=== PATIENT | female | born 1940 | race Caucasian/White ===

== ENCOUNTER 2022-10-01 19:03 | Inpatient (IN) | payer MEDICARE, SELFPAY ==
[2022-10-01 19:42] VITALS: BP 118/82; PULSE 105; RESP 16; TEMP 36.6; O2SAT 97
[2022-10-01 20:01] LABS: Basophils % 0.7 %; Eosinophils # 0.1 10^3/uL (0.0-0.8); Eosinophils % 1.2 %; Hematocrit 31.5 % (37.0-47.0); Hemoglobin 10.2 g/dL (11.5-15.3); Lymphocytes # 0.7 10^3/uL (0.8-4.8); Lymphocytes % 12.5 %; Mean Corpuscular HGB Conc 32.4 g/dL (30.0-36.0); Mean Corpuscular Hemoglobin 30.4 pg (28.0-34.0); Monocytes # 0.5 10^3/uL (0.2-0.9); Monocytes % 7.8 %; Neutrophils # 4.54 10^3/uL (1.8-7.7); Neutrophils % 77.5 %; Nucleated Red Blood Cells % 0 %; Platelet Count 380 10^3/cmm (130-400); Red Blood Count 3.35 10^6/uL (4.1-5.3); Red Cell Distribution Width 12.9 % (12.1-15.1); White Blood Count 5.9 10^3/uL (4.0-10.0)
[2022-10-01 20:24] LABS: Alanine Aminotransferase 26 U/L (0-33); Albumin Level 3.5 g/dL (3.5-5.2); Alkaline Phosphatase 79 U/L (35-105); Anion Gap 17.1 (5-19); Aspartate Amino Transferase 31 U/L (0-32); Blood Urea Nitrogen 23 mg/dL (8-23); Calcium 8.5 mg/dL (8.5-10.5); Carbon Dioxide 23 mmol/L (22-29); Chloride 103 mmol/L (98-107); Globulin 2.9 g/dL (1.3-4.6); Glucose 131 mg/dL (65-115); Lipase 32 U/L (13-60); Osmolality Calculated 293 mOsm/kg (285-295); Potassium 4.1 mmol/L (3.5-5.1); Sodium 139 mmol/L (136-145); Total Bilirubin 0.2 mg/dL (0.15-1.2); Total Protein 6.4 g/dL (6.6-8.7)
--- NOTE | 2022-10-01 21:45 | CTR_ITS ---
PROCEDURE INFORMATION: Exam: CT Abdomen And Pelvis With Contrast Exam date and time: 10/01/2022 10:47 PM Age: 82 years old Clinical indication: Nausea and vomiting; Prior surgery; Surgery date: 6+ months; Surgery type: Appy; Additional info: Abdominal pain, gi bleeding TECHNIQUE: Imaging protocol: Computed tomography of the abdomen and pelvis with contrast. Radiation optimization: All CT scans at this facility use at least one of these dose optimization techniques: automated exposure control; mA and/or kV adjustment per patient size (includes targeted exams where dose is matched to clinical indication); or iterative reconstruction. Contrast material: OMNI 350; Contrast volume: 100 ml; Contrast route: INTRAVENOUS (IV); REPORTING DATA: Count of CT and Cardiac NM exams in prior 12 months: This patient has received 0 known CTs and 0 known cardiac nuclear medicine studies in the 12 months prior to the current study. COMPARISON: CR XR chest 2V* [id number] 11/15/2017 8:04 PM RADIATION DOSE METRICS: Total DLP (mGy-cm): 426.55 FINDINGS: Lungs: Emphysematous changes suspected. Bibasilar atelectasis. Liver: Several low-density hepatic lesions, 1 of which in the left hepatic lobe measures 12.6 mm and appears somewhat complicated. Gallbladder and bile ducts: Normal. No calcified stones. No ductal dilation. Pancreas: Normal. No ductal dilation. Spleen: Normal. No splenomegaly. Adrenal glands: Normal. No mass. Kidneys and ureters: Bilateral renal cysts, negative for follow-up advised. Stomach and bowel: Minimal diverticulosis without diverticulitis. Mild gastric wall thickening may reflect a gastritis in the appropriate clinical setting. Appendix: No evidence of appendicitis. Intraperitoneal space: Unremarkable. No free air. No significant fluid collection. Vasculature: Unremarkable. No abdominal aortic aneurysm. Lymph nodes: Several enlarged upper abdominal lymph nodes measuring up to 12.2 mm series 4, image 19, nonspecific. Urinary bladder: Unremarkable as visualized. Reproductive: Unremarkable as visualized. Bones/joints: Unremarkable. No acute fracture. Soft tissues: Unremarkable. CT/CT abdomen pelvis w con* [id number] IMPRESSION: 1. Negative for contrast extravasation seen to indicate a source of gastrointestinal bleeding. 2. Emphysematous changes suspected. 3. Bibasilar atelectasis. 4. Several low-density hepatic lesions, 1 of which in the left hepatic lobe measures 12.6 mm and appears somewhat complicated. Further evaluation with non-emergent liver MRI is recommended. (Reference: Ran) 5. Bilateral renal cysts, negative for follow-up advised. 6. Minimal diverticulosis without diverticulitis. 7. Mild gastric wall thickening may reflect a gastritis in the appropriate clinical setting. 8. Several enlarged upper abdominal lymph nodes measuring up to 12.2 mm series 4, image 19, nonspecific. COMMENTS: Consistent with the [employer]'s Incidental Findings Committee white paper (J Am Latoya Radiol 2018): Any incidental renal lesion less than 1 cm or classified as too small to characterize, or any incidental cystic renal lesion characterized as simple-appearing, is likely benign. No follow-up imaging is recommended for these lesions per consensus recommendations based on imaging criteria. REFERENCES: Ran NORRIS, et al. Management of Incidental Liver Lesions on CT: A White Paper of the ACR Incidental Findings Committee. J Am Latoya Radiol. 2017;14(11):5674-0324.
--- NOTE | 2022-10-01 22:26 | ED_ITS ---
HPI - GI Bleed General: Chief complaint: GI Bleed Stated complaint: weakness, vomiting blood, black stools Time Seen by Provider: 10/01/22 21:36 Source: patient and family History of Present Illness: 82-year-old female who notes that when she returned home from [place] today, she began to feel ill. She was nauseated. She felt a bit unsteady on her feet. She had an episode of vomiting, that she notes was blood. It was a small amount. She then had a black loose stool. She has not felt well, and has been generally weak since that time. No further ep isodes. No fever. No overt belly pain. She is not on any anticoagulants. She does take antihypertensive medication and eyedrops. MD complaint: gross hematemesis and melena Onset (ago): hour(s) Pain Consistency: other Relieving factors: other Exacerbating factors: other Associated symptoms: Reports chills, malaise, nausea and vomiting; Denies abdominal pain, easy bruising, epistaxis, fever(s), headache(s), other bleeding or syncope Treatments Prior to Arrival: none Review of Systems Const: Reports: chills and malaise; Denies: fever(s) ENMT: Denies: throat pain or epistaxis Card: Denies: chest pain, palpitations or syncope Resp: Denies: dyspnea, productive cough or non-productive cough GI: Reports: nausea and vomiting; Denies: abdominal pain : Denies: flank pain or difficulty voiding Neuro: Denies: headache(s) Gerard/Lymph: Denies: easy bruising Physical Exam Const: GENERAL APPEARANCE: cooperative, ill appearing (Mildly) and frail appearing (Mildly) HENMT: COMMON NORMALS: normocephalic, atraumatic and Normal external nose present HEAD & SCALP: normocephalic and atraumatic FACE & SINUS: normal facial exam and face symmetric NOSE: Normal external nose present Eye: COMMON NORMALS: Equal, round and reactive pupils present and EOMs intact bilaterally PUPIL: Yes Equal, round and reactive pupils present Neck/C-Spine: GENERAL: Yes trachea midline Chest: CHEST: Yes Symmetrical chest wall rise Resp: COMMON NORMALS: normal respiratory effort, No retractions, No use of accessory muscles and clear to auscultation bilaterally AUSCULTATION: clear to auscultation bilaterally Cardio: COMMON NORMALS: regular rate and regular rhythm RATE: regular rate RHYTHM: regular rhythm GI: COMMON NORMALS: Soft to palpation INSPECTION: Yes abdominal distension PALPATION: Yes Soft to palpation and Yes Tenderness to palpation present (GI) (Mild diffuse) Extremity: COMMON NORMALS: no pedal edema Neuro: [place] COMA SCALE: document GCS findings [place] coma scale eye opening: Spontaneous [place] coma scale verbal response: Orientated [place] coma scale motor response: Obey commands [place] coma scale total score: 15 SENSORY EXAM: Yes extremities (intact) Psych: COMMON NORMALS: speech normal SPEECH: Yes normal speech Skin: COMMON NORMALS: no rashes or lesions noted GENERAL SKIN EXAM: no rash es or lesions noted Course Vital Signs: Vital signs: Vital Signs Temperature 97.8 F 10/01/22 19:42 Pulse Rate 105 H 10/01/22 19:42 Respiratory Rate 16 10/01/22 19:42 Blood Pressure 118/82 10/01/22 19:42 Pulse Oximetry 97 10/01/22 19:42 Oxygen Delivery Me thod 10/01/22 19:42 MDM - GI Bleed Medical Decision Making 82-year-old female with evidence of upper GI bleeding. She has not demonstrated bleeding since here. Her hemoglobin is 10.2. 5 hours later, it is 8.4. Other laboratories not remarkable. By CT, she has a gastritis, presumed source of bleeding. No other acute findings. Spoke with our hospitalist. Willing to admit, with surgery consult in the morning in case further blood loss, an EGD needed. She will go to the floor. Repeat hemoglobin later this morning. Lab Data 10/01/22 19:53 10/01/22 19:53 Radiology Impressions Abdomen/Pelvis CT 10/01/22 21:45 IMPRESSION: 1. Negative for contrast extravasation seen to indicate a source of gastrointestinal bleeding. 2. Emphysematous changes suspected. 3. Bibasilar atelectasis. 4. Several low-density hepatic lesions, 1 of which in the left hepatic lobe measures 12.6 mm and appears somewhat complicated. Further evaluation with non-emergent liver MRI is recommended. (Reference: Ran) 5. Bilateral renal cysts, negative for follow-up advised. 6. Minimal diverticulosis without diverticulitis. 7. Mild gastric wall thickening may reflect a gastritis in the appropriate clinical setting. 8. Several enlarged upper abdominal lymph nodes measuring up to 12.2 mm series 4, image 19, nonspecific. COMMENTS: Consistent with the [employer]'s Incidental Findings Committee white paper (J Am Latoya Radiol 2018): Any incidental renal lesion less than 1 cm or classified as too small to characterize, or any incidental cystic renal lesion characterized as simple-appearing, is likely benign. No follow-up imaging is recommended for these lesions per consensus recommendations based on imaging criteria. REFERENCES: Ran NORRIS, et al. Management of Incidental Liver Lesions on CT: A White Paper of the ACR Incidental Findings Committee. J Am Latoya Radiol. 2017;14(11):5643-9276. Laboratory Results WBC 5.9 10^3/uL (4.0-10.0) 10/01/22 19:53 RBC 3.35 10^6/uL (4.1-5.3) L 10/01/22 19:53 Hgb 8.4 g/dL (11.5-15.3) L 10/02/22 00:13 Hct 31.5 % (37.0-47.0) L 10/01/22 19:53 MCV 94.0 fl (81-99) 10/01/22 19:53 MCH 30.4 pg (28.0-34.0) 10/01/22 19:53 MCHC 32.4 g/dL (30.0-36.0) 10/01/22 19:53 RDW 12.9 % (12.1-15.1) 10/01/22 19:53 Plt Count 380 10^3/cmm (130-400) 10/01/22 19:53 MPV 10.0 fL (7.4-10.4) 10/01/22 19:53 Neut % (Auto) 77.5 % 10/01/22 19:53 Lymph % (Auto) 12.5 % 10/01/22 19:53 [place] % (Auto) 7.8 % 10/01/22 19:53 Eos % (Auto) 1.2 % 10/01/22 19:53 Baso % (Auto) 0.7 % 10/01/22 19:53 Neut # (Auto) 4.54 10^3/uL (1.8-7.7) 10/01/22 19:53 Lymph # (Auto) 0.7 10^3/uL (0.8-4.8) L 10/01/22 19:53 [place] # (Auto) 0.5 10^3/uL (0.2-0.9) 10/01/22 19:53 Eos # (Auto) 0.1 10^3/uL (0.0-0.8) 10/01/22 19:53 Baso # (Auto) 0.0 10^3/uL (0.0-0.1) 10/01/22 19:53 Nucleated RBC % (auto) 0 % 10/01/22 19:53 Nucleated RBCs # 0.0 /100WBC 10/01/22 19:53 Sodium 139 mmol/L (136-145) 10/01/22 19:53 Potassium 4.1 mmol/L (3.5-5.1) 10/01/22 19:53 Chloride 103 mmol/L (98-107) 10/01/22 19:53 Carbon Dioxide 23 mmol/L (22-29) 10/01/22 19:53 Anion Gap 17.1 (5-19) 10/01/22 19:53 BUN 23 mg/dL (8-23) 10/01/22 19:53 Creatinine 0.6 mg/dL (0.5-0.9) 10/01/22 19:53 GFR Calculation Not Reportable 10/01/22 19:53 Glucose 131 mg/dL (65-115) H 10/01/22 19:53 Calculated Osmolality 293 mOsm/kg (285-295) 10/01/22 19:53 Calcium 8.5 mg/dL (8.5-10.5) 10/01/22 19:53 Total Bilirubin 0.2 mg/dL (0.15-1.2) 10/01/22 19:53 AST 31 U/L (0-32) 10/01/22 19:53 ALT 26 U/L (0-33) 10/01/22 19:53 Alkaline Phosphatase 79 U/L (35-105) 10/01/22 19:53 Total Protein 6.4 g/dL (6.6-8.7) L 10/01/22 19:53 Albumin 3.5 g/dL (3.5-5.2) 10/01/22 19:53 Globulin 2.9 g/dL (1.3-4.6) 10/01/22 19:53 Lipase 32 U/L (13-60) 10/01/22 19:53 Discharge Plan Discharge Patient Disposition: Admitted As Inpatient Clinical Impression: Gastritis, Upper gastrointestinal hemorrhage, Anemia Condition: Fair Coding Level of Care Code ED [employer] Coach for Brenna Guadalupe
[2022-10-01] MEDS: sodium chloride 0.9% 1,000 ML 999 ML IV (22:35)
[2022-10-01] MEDS: ondansetron 2 mg/ML SDV 2 mL 4 MG IVP (22:35)
[2022-10-01] MEDS: iohexol 350 mg/mL 500 mL Btl (per mL) IV (22:52)
[2022-10-01] MEDS: pantoprazole 40 mg SDV 80 MG IVP (23:55)
[2022-10-02] VITALS (28 sets, daily range): BP systolic 119–185; BP diastolic 61–120; PULSE 76–103; RESP 16–30; TEMP -12.7–37; O2SAT 75–100
[2022-10-02 00:21] LABS: Hemoglobin 8.4 g/dL (11.5-15.3)
[2022-10-02 03:49] LABS: Urine Color Yellow (Yellow)
[2022-10-02 03:50] LABS: Bilirubin Urine Neg (Negative); Blood Urine 2+ (Negative); Glucose Urine UA Norm (Normal); Ketones Urine Negative (Negative); Nitrate Urine Positive (Negative); Protein Urine Trace (Negative); Specific Gravity, Urine 1.005 (1.005-1.030); Urine Appearance Cloudy (CLEAR); pH Urine 5 (5-7)
[2022-10-02 03:51] LABS: Add Urine Microscopic? YES; Leukocyte Esterase Urine 2+ (Negative); Urobilinogen Urine Neg (Negative)
[2022-10-02 03:52] LABS: Add Urine Culture? Yes; Bacteria Urine 1+ /hpf; Mucus Urine 1+ /hpf; Squamous Epithelial Cell Urine 0-4 /hpf (0-5); WBC Urine TOO NUMEROUS TO CNT /hpf (0-5)
[2022-10-02] MEDS: pantoprazole 40 MG in sodium chloride 0.9% (plus) 100 ML 20 MG IV ×3 (03:57→14:49)
[2022-10-02] MEDS: lanolin oint 7 gm 1 APPLIC TOPICAL (04:12)
[2022-10-02] MEDS: sodium chloride 0.9% 1,000 ML 75 ML IV (07:11)
--- NOTE | 2022-10-02 07:14 | PM.HP ---
Providers/Chief Complaint Admitting Physician: Dulce Maria Dubose MD Chief Complaint: weakness, vomiting blood, black stools History of Present Illness Griselda Dillard is a 82 year old female presenting to the emergency room with chief complaints of hematemesis and melena. Patient reports being in her usual state of health until last afternoon when she started to feel nauseated. She had 1 episode of vomiting which contained blood and afterwards had a loose bloody bowel movement. She notes that the stool contained black to brown-colored material possibly blood. Her hemoglobin dropped from 10-8.[address] in the emergency room. CT of the abdomen and pelvis did not reveal any actively bleeding vessel. Diverticulosis was noted. She denies any past history of GI bleeding. Denies any recent fever chills abdominal pain. Review of Systems General: Reports: 10 or more systems reviewed and unremarkable except in HPI and below Const: Denies: fever(s), chills or body aches Eyes: Denies: change in vision, blurry vision or photophobia ENMT: Reports: hoarseness; Denies: throat pain, enlarged tonsils, odynophagia or nasal congestion Card: Denies: chest pain, palpitations, irregular heart rhythm, edema, swelling of feet/ankles, lightheadedness, pre-syncope, dyspnea on exertion or orthopnea Resp: Denies: dyspnea, productive cough, non-productive cough, wheezing, stridor, pain on inspiration, change in phlegm color, hemoptysis or chest congestion GI: Denies: abdominal pain, nausea, vomiting, hematemesis, coffee ground emesis, dysphagia, heartburn, diarrhea, constipation, GI cramping, change in stool character, hematochezia or melena : Denies: flank pain, difficulty voiding, dysuria, urinary frequency, urinary urgency, urinary hesitancy or hematuria Musc: Denies: neck pain, back pain, extremity pain, joint swelling, joint warmth or deformity Neuro: Denies: headache(s), numbness in extremities, weakness in extremities, sensory changes, difficulty walking, frequent falls, dizziness, vertigo, behavioral changes, Slurred speech present or seizure-like activity Psych: Denies: anxiety, depression, suicidal ideation or homicidal ideation Endo: Denies: polyuria, polydipsia, tired all the time, cold intolerance or hot flashes Gerard/Lymph: Denies: easy bruising or easy bleeding Medications/Allergies Allergies Allergy/AdvReac Type Severity Reaction Status Date / Time No Known Allergies Allergy Verified 10/01/22 19:47 Vitals/I&O/Wt Last Vital Signs Temp 98.1 F 10/02/22 04:00 Pulse 76 10/02/22 04:00 Resp 16 10/02/22 04:00 BP 119/74 10/02/22 04:00 Pulse Ox 99 10/02/22 04:00 O2 Del Method 10/02/22 05:11 10/01/22 10/02/22 10/02/22 22:59 06:59 14:59 Intake Total 1000 / 1000 Output Total 250 / 250 Balance 750 / 750 Weight last 48 hrs Weight 65.771 kg Physical Exam Narrative: General: No acute distress, AO x3 HEENT: PERRLA, pupils bilaterally equal and reactive, pallors not present Chest: Normal vesicular breath sounds, no added sounds, equal good air entry bilaterally CVS: S1-S2 regular, no murmurs, no tachycardia, no gallops, no rubs Abdomen: Soft, nontender, no organomegaly, bowel sounds present Neuro: No focal deficits, no facial deformity, AO x3, power 5/5 in all limbs Data 10/02/22 00:13 10/01/22 19:53 Other Labs: Radiology Impressions Abdomen/Pelvis CT 10/01/22 21:45 IMPRESSION: 1. Negative for contrast extravasation seen to indicate a source of gastrointestinal bleeding. 2. Emphysematous changes suspected. 3. Bibasilar atelectasis. 4. Several low-density hepatic lesions, 1 of which in the left hepatic lobe measures 12.6 mm and appears somewhat complicated. Further evaluation with non-emergent liver MRI is recommended. (Reference: Ran) 5. Bilateral renal cysts, negative for follow-up advised. 6. Minimal diverticulosis without diverticulitis. 7. Mild gastric wall thickening may reflect a gastritis in the appropriate clinical setting. 8. Several enlarged upper abdominal lymph nodes measuring up to 12.2 mm series 4, image 19, nonspecific. COMMENTS: Consistent with the [employer]'s Incidental Findings Committee white paper (J Am Latoya Radiol 2018): Any incidental renal lesion less than 1 cm or classified as too small to characterize, or any incidental cystic renal lesion characterized as simple-appearing, is likely benign. No follow-up imaging is recommended for these lesions per consensus recommendations based on imaging criteria. REFERENCES: Ran NORRIS, et al. Management of Incidental Liver Lesions on CT: A White Paper of the ACR Incidental Findings Committee. J Am Latoya Radiol. 2017;14(11):0156-9595. Laboratory Results WBC 5.9 10^3/uL (4.0-10.0) 10/01/22 19:53 RBC 3.35 10^6/uL (4.1-5.3) L 10/01/22 19:53 Hgb 8.4 g/dL (11.5-15.3) L 10/02/22 00:13 Hct 31.5 % (37.0-47.0) L 10/01/22 19:53 MCV 94.0 fl (81-99) 10/01/22 19:53 MCH 30.4 pg (28.0-34.0) 10/01/22 19:53 MCHC 32.4 g/dL (30.0-36.0) 10/01/22 19:53 RDW 12.9 % (12.1-15.1) 10/01/22 19:53 Plt Count 380 10^3/cmm (130-400) 10/01/22 19:53 MPV 10.0 fL (7.4-10.4) 10/01/22 19:53 Neut % (Auto) 77.5 % 10/01/22 19:53 Lymph % (Auto) 12.5 % 10/01/22 19:53 [place] % (Auto) 7.8 % 10/01/22 19:53 Eos % (Auto) 1.2 % 10/01/22 19:53 Baso % (Auto) 0.7 % 10/01/22 19:53 Neut # (Auto) 4.54 10^3/uL (1.8-7.7) 10/01/22 19:53 Lymph # (Auto) 0.7 10^3/uL (0.8-4.8) L 10/01/22 19:53 [place] # (Auto) 0.5 10^3/uL (0.2-0.9) 10/01/22 19:53 Eos # (Auto) 0.1 10^3/uL (0.0-0.8) 10/01/22 19:53 Baso # (Auto) 0.0 10^3/uL (0.0-0.1) 10/01/22 19:53 Nucleated RBC % (auto) 0 % 10/01/22 19:53 Nucleated RBCs # 0.0 /100WBC 10/01/22 19:53 Sodium 139 mmol/L (136-145) 10/01/22 19:53 Potassium 4.1 mmol/L (3.5-5.1) 10/01/22 19:53 Chloride 103 mmol/L (98-107) 10/01/22 19:53 Carbon Dioxide 23 mmol/L (22-29) 10/01/22 19:53 Anion Gap 17.1 (5-19) 10/01/22 19:53 BUN 23 mg/dL (8-23) 10/01/22 19:53 Creatinine 0.6 mg/dL (0.5-0.9) 10/01/22 19:53 GFR Calculation Not Reportable 10/01/22 19:53 Glucose 131 mg/dL (65-115) H 10/01/22 19:53 Calculated Osmolality 293 mOsm/kg (285-295) 10/01/22 19:53 Calcium 8.5 mg/dL (8.5-10.5) 10/01/22 19:53 Total Bilirubin 0.2 mg/dL (0.15-1.2) 10/01/22 19:53 AST 31 U/L (0-32) 10/01/22 19:53 ALT 26 U/L (0-33) 10/01/22 19:53 Alkaline Phosphatase 79 U/L (35-105) 10/01/22 19:53 Total Protein 6.4 g/dL (6.6-8.7) L 10/01/22 19:53 Albumin 3.5 g/dL (3.5-5.2) 10/01/22 19:53 Globulin 2.9 g/dL (1.3-4.6) 10/01/22 19:53 Lipase 32 U/L (13-60) 10/01/22 19:53 Urine Color Yellow (Yellow) 10/02/22 02:55 Urine Appearance Cloudy (CLEAR) A 10/02/22 02:55 Urine pH 5 (5-7) 10/02/22 02:55 Ur Specific [place] 1.005 (1.005-1.030) 10/02/22 02:55 Urine Protein Trace (Negative) 10/02/22 02:55 Urine Glucose (UA) Norm (Normal) 10/02/22 02:55 Urine Ketones Negative (Negative) 10/02/22 02:55 Urine Blood 2+ (Negative) H 10/02/22 02:55 Urine Nitrate Positive (Negative) H 10/02/22 02:55 Urine Bilirubin Neg (Negative) 10/02/22 02:55 Urine Urobilinogen Neg mg/dL (Negative) 10/02/22 02:55 Ur Leukocyte Esterase 2+ (Negative) H 10/02/22 02:55 Urine RBC 5-10 /hpf (0-2) H 10/02/22 02:55 Urine WBC Too numerous to cnt /hpf (0-5) H 10/02/22 02:55 Ur Squamous Epith Cells 0-4 /hpf (0-5) H 10/02/22 02:55 Amorphous Sediment Not Reportable 10/02/22 02:55 Urine Bacteria 1+ /hpf (NONE) H 10/02/22 02:55 Urine Mucus 1+ /hpf 10/02/22 02:55 A&P Assessment and plan (1) Upper gastrointestinal hemorrhage: (2) Anemia: Plan Patient presenting to the emergency room with chief complaints of 1 episode of hematemesis and melena. States feeling nauseous and unwell prior to the events. CT of the abdomen and pelvis without any contrast extravasation. Noted diverticulosis without signs of diverticular lightest. Mild gastric wall thickening which may be reflective of gastritis. Several enlarged upper abdominal lymph nodes. Hemoglobin has dropped from 10-8.4 while being monitored here. Started on Protonix 80 mg IV stat followed by 8 mg/h IV infusion. Due to concern for possible gastritis versus gastric malignancy given enlarged lymph nodes, general surgery has been consulted to assess for endoscopy evaluation. Continue to trend H&H every 8 hours Currently hemodynamically stable, start normal saline at 75 cc an hour Keep n.p.o. Attestations Medical Necessity Statement*: Upper GI bleeding, anemia, needs close hemoglobin monitoring general surgery assessment for possible endoscopy Coding Level of Care Code Acute Code for Chg Fwd Moderate MDM includes number and complexity of problems actively addressed during encounter, amount and/or complexity of data reviewed/ordered and described risk of complication, morbidity or mortality of management as documented Diagnoses Upper gastrointestinal hemorrhage K92.2 Anemia D64.9
--- NOTE | 2022-10-02 08:26 | PC.PHAR ---
pt filled lisinopril/hctz on 09/19/22 90ds pt sts she is not taking because it drops her bp to low
--- NOTE | 2022-10-02 09:01 | P.CONIM_ITS ---
Providers/Reason For Consult Consulting Physician/Specialty*: Dr. Buck Pino, DO/General surgery Reason for Consult*: Upper GI bleed Attending Physician: Dulce Maria Dubose MD History of Present Illness History of Present Illness Griselda Dillard is a 82 year old female who presented to the hospital yesterday with a 1 day history of hematemesis and melena. She denies any abdominal pain. Denies any history of heartburn. She has never had these symptoms before. Her hemoglobin dropped from 10.2-8.4 in the emergency room. General surgery was consulted for possible EGD. Review of Systems General: Reports: 10 or more systems reviewed and unremarkable except in HPI and below Medications/Allergies Home Medications Medication Instructions Recorded Confirmed Last Taken Type calcium carbonate 600 mg calcium 600 mg PO DAILY 10/02/22 10/02/22 Unknown History (1,500 mg) tablet (Calcium) cholecalciferol (vitamin D3) 25 25 mcg PO DAILY 10/02/22 10/02/22 Unknown History mcg (1,000 unit) capsule (Vitamin D3) latanoprost 0.005 % eye drops 1 drp ophthalmic (eye) BEDTIME 10/02/22 10/02/22 Unknown History lovastatin 40 mg tablet 40 mg PO QPM 10/02/22 10/02/22 Unknown History wycnwfcj-jis-fyaov ac 400 1 tab PO DAILY 10/02/22 10/02/22 Unknown History mcg-calcium carb 500 mg-vit K1 20 mcg tablet (Women's 50 Plus Daily Formula) timolol maleate 0.5 % eye drops 1 drp ophthalmic (eye) BID 10/02/22 10/02/22 Unknown History vitamin B12 2,500 mcg-folic acid 1 tab PO DAILY 10/02/22 10/02/22 Unknown History 400 mcg disintegrating tablet Allergies Allergy/AdvReac Type Severity Reaction Status Date / Time No Known Allergies Allergy Verified 10/02/22 08:23 Current Medications Generic Name Dose Route Start Last Admin Trade Name Freq PRN Reason Stop Dose Admin Pantoprazole Sodium 40 mg/ 100 mls @ 20 mls/hr 10/02/22 02:51 10/02/22 03:57 Sodium Chloride IV 8 mg/hr .Q5H EFRAIN 20 mls/hr Administration 8 MG/HR Sodium Chloride 1,000 mls @ 75 mls/hr 10/02/22 06:30 10/02/22 07:11 Sodium Chloride 0.9% IV 75 mls/hr .[id number] EFRAIN Administration Lanolin 1 applic 10/02/22 03:59 10/02/22 04:12 Lanolin Oint 7 Gm TOPICAL 1 applic PRN PRN Administration DRYNESS PFSH Acute PFSH: Surgical History History of appendectomy Vitals/I&O/Wt Last Vital Signs Temp 98.2 F 10/02/22 07:44 Pulse 81 10/02/22 07:44 Resp 16 10/02/22 07:44 BP 128/79 10/02/22 07:44 Pulse Ox 96 10/02/22 07:44 O2 Del Method 10/02/22 07:44 10/01/22 10/02/22 10/02/22 22:59 06:59 14:59 Intake Total 1000 / 1000 Output Total 250 / 250 400 / 400 Balance 750 / 750 -400 / -400 Weight last 48 hrs Weight 145 lb Physical Exam Narrative: General : Patient is well developed , no acute distress, oriented x3 Head : Normal cephalic, a-traumatic. Ears : Pinnae and external canal are normal. Hearing is normal. Eyes : PERRLA, Sclera and injection are normal. No conjunctival discharge. Nose : Mucous membranes are without erythema. Throat : buccal mucosa is normal, gums are without significant recession or hypertrophy. Lungs : Equal chest rise bilaterally, no use of accessory muscles, trachea is midline. Cor : Rate and rhythm are normal. Abdomen : Soft, ND, NT, no g/r/m Extremities : No edema, no cyanosis or clubbing, dorsalis pedis pulses are prese nt bilaterally, non-tender to palpation of calves. Upper extremities are normal bilaterally. Back : non-tender to palpation, no CVA tenderness. Neuro : CN II - XII intact, Upper and lower extremities have equal and full strength Data 10/02/22 00:13 10/01/22 19:53 A&P Assessment and plan (1) Upper gastrointestinal hemorrhage: (2) Anemia: Plan Protonix every 12 Sucralfate twice daily EGD The risks and benefits of the procedure, including bleeding, infection, intestinal perforation requiring surgery, missed lesion were explained to the patient. The patient is understanding of the risks and wishes to proceed. Coding Level of Care Code Acute Code for Chg Fwd Diagnoses Upper gastrointestinal hemorrhage K92.2 Anemia D64.9
[2022-10-02] MEDS: sodium chloride 0.9% 1,000 ML 30 ML IV (09:05)
--- NOTE | 2022-10-02 09:08 | P.ANESASSM_ITS ---
Pre-Anesthetic Assessment Height/Weight: Weight 65.771 kg Temp Pulse Resp BP Pulse Ox O2 Del Method 98.2 F 81 16 128/79 96 10/02/22 07:44 10/02/22 07:44 10/02/22 07:44 10/02/22 07:44 10/02/22 07:44 10/02/22 07:44 Preop Diagnosis: GI bleed Operation Date: 10/02/22 09:00 Proposed Procedures p EGD(Not Applicable) - Buck Pino DO Familial anesthetic complications: none Was Beta Jocelynn taken within 24 hours: N/A Was Clonidine taken within 24 hours: N/A Last Intake: 12:00 Social No alcohol and No tobacco Exam alert, oriented x 3, clear to auscultation bilaterally and regular rate & rhythm Airway Submandibular: within normal limits Cervical ROM: within normal limits Mallampati: Class I Dentition: false Pulmonary None reported CV/HEM None reported None reported Hepatic None reported GI Gastroesophageal Reflux Disease Metabolic None reported Musc/skel None reported Neuropsych Cerebrovascular Accident (right side weakness with diffuculty in speech) and Transient Ischemic Attack Anesthetic Plan ASA status: 3 Anesthesia: MAC Medications/Allergies Home Medications Medication Instructions Recorded Confirmed Last Taken Type calcium carbonate 600 mg calcium 600 mg PO DAILY 10/02/22 10/02/22 Unknown History (1,500 mg) tablet (Calcium) cholecalciferol (vitamin D3) 25 25 mcg PO DAILY 10/02/22 10/02/22 Unknown History mcg (1,000 unit) capsule (Vitamin D3) latanoprost 0.005 % eye drops 1 drp ophthalmic (eye) BEDTIME 10/02/22 10/02/22 Unknown History lovastatin 40 mg tablet 40 mg PO QPM 10/02/22 10/02/22 Unknown History radxopei-syt-amyms ac 400 1 tab PO DAILY 10/02/22 10/02/22 Unknown History mcg-calcium carb 500 mg-vit K1 20 mcg tablet (Women's 50 Plus Daily Formula) timolol maleate 0.5 % eye drops 1 drp ophthalmic (eye) BID 10/02/22 10/02/22 Unknown History vitamin B12 2,500 mcg-folic acid 1 tab PO DAILY 10/02/22 10/02/22 Unknown History 400 mcg disintegrating tablet Allergies Allergy/AdvReac Type Severity Reaction Status Date / Time No Known Allergies Allergy Verified 10/02/22 08:23 Current Medications Generic Name Dose Route Start Last Admin Trade Name Freq PRN Reason Stop Dose Admin Pantoprazole Sodium 40 mg/ 100 mls @ 20 mls/hr 10/02/22 02:51 10/02/22 03:57 Sodium Chloride IV 8 mg/hr .Q5H EFRAIN 20 mls/hr Administration 8 MG/HR Sodium Chloride 1,000 mls @ 75 mls/hr 10/02/22 06:30 10/02/22 07:11 Sodium Chloride 0.9% IV 75 mls/hr .[id number] EFRAIN Administration Lanolin 1 applic 10/02/22 03:59 10/02/22 04:12 Lanolin Oint 7 Gm TOPICAL 1 applic PRN PRN Administration DRYNESS PFSH Anesthesia Surgical History History of appendectomy Data Anesthesia 10/02/22 00:13 10/01/22 19:53 Short CBC 10/01/22 10/02/22 Range/Units 19:53 00:13 WBC 5.9 (4.0-10.0) 10^3/uL Hgb 10.2 L 8.4 L (11.5-15.3) g/dL Hct 31.5 L (37.0-47.0) % MCV 94.0 (81-99) fl Plt Count 380 (130-400) 10^3/cmm Neut % (Auto) 77.5 % Neut # (Auto) 4.54 (1.8-7.7) 10^3/uL BMP 10/01/22 19:53 Sodium 139 Potassium 4.1 Chloride 103 Carbon Dioxide 23 BUN 23 Creatinine 0.6 Glucose 131 H Calcium 8.5 Liver Function 10/01/22 Range/Units 19:53 Total Bilirubin 0.2 (0.15-1.2) mg/dL AST 31 (0-32) U/L ALT 26 (0-33) U/L Alkaline Phosphatase 79 (35-105) U/L Albumin 3.5 (3.5-5.2) g/dL Urine 10/02/22 Range/Units 02:55 Urine Color Yellow (Yellow) Urine Appearance Cloudy A (CLEAR) Urine pH 5 (5-7) Ur Specific [place] 1.005 (1.005-1.030) Urine Protein Trace (Negative) Urine Glucose (UA) Norm (Normal) Urine Ketones Negative (Negative) Urine Nitrate Positive H (Negative) Urine Bilirubin Neg (Negative) Ur Leukocyte Esterase 2+ H (Negative) Urine RBC 5-10 H (0-2) /hpf Urine WBC Too numerous to cnt H (0-5) /hpf Cardiac Studies: No Data to Display
--- NOTE | 2022-10-02 11:10 | PM.TDS ---
Transfer Summary Providers Date of Admission: 10/02/22 01:20 Date of Discharge/Transfer: 10/02/22 Attending Provider at Admission: Alex Newton MD Attending Provider at Transfer: Dulce Maria Dubose MD Transfer Plans: Anticipated date of transfer: 10/02/22. Diagnoses at Discharge Discharge Diagnosis (1) Upper gastrointestinal hemorrhage: Status: Acute (2) Anemia: Status: Acute Reason for Visit Reason for Visit weakness, vomiting blood, black stools Hospital Course Hospital Course 82-year female who was admitted for management of hematemesis and melanotic stool, general surgery was consulted for EGD, which is showing intraluminal gastric blood, no abnormalities needed of esophageal mucosa, whole stomach could not be visualized because of large amount of clotted blood, no significant lesion in duodenum Dr. Pino has recommended transfer to tertiary center for GI work-up because we do not have enough backup in case we try to retrieve clots from her stomach and causes more active bleeding She was transferred from [facility] to ICU for closer monitoring because of blood clots per rectum. She is hemodynamically stable she is currently on Protonix drip and octreotide because of active bleed per rectum. She will need GI services along IR in case of further worsening of bleeding episodes. She does have hepatic lesion with abnormal abdominal lymph nodes 12.[address] abdomen pelvis with contrast IMPRESSION: 1. ? Negative for contrast extravasation seen to indicate a source of gastrointestinal bleeding. 2. ? Emphysematous changes suspected. 3. ? Bibasilar atelectasis. 4. ? Several low-density hepatic lesions, 1 of which in the left hepatic lobe measures 12.6 mm and appears somewhat complicated. Further evaluation with non-emergent liver MRI is recommended. (Reference: Ran) 5. ? Bilateral renal cysts, negative for follow-up advised. 6. ? Minimal diverticulosis without diverticulitis. 7. ? Mild gastric wall thickening may reflect a gastritis in the appropriate clinical setting. 8.? Several enlarged upper abdominal lymph nodes measuring up to 12.2 mm series 4, image 19, nonspecifi Patient has been accepted at [facility] by Dr. Rebolledo, hospice liaison consulted as well Patient is getting a unit of PRBC right now, hemodynamically stable, patient is awake and alert and stable to be transferred, family updated, at the at the bedside, they agreeable with the plan Physical Exam Narrative: Patient is awake Lethargic S1, S2 GI cramps Hemodynamically stable Currently on room air TS Data Studies Completed and Pending Pending at discharge Category Date Time Status Complete Blood Count w/Auto Q8H Lab 10/03/22 04:00 Ordered Comprehensive Metabolic Panel AM LABS Lab 10/03/22 04:00 Ordered Hemoglobin and Hematocrit Stat Lab 10/02/22 11:00 Ordered Leukocyte Reduced RBC Stat Lab 10/02/22 10:14 Ordered Type and Screen Stat Lab 10/02/22 10:14 Ordered Urine Culture Stat Lab 10/02/22 02:55 Received Labs from last 24 hours 10/02/22 10/02/22 10/01/22 02:55 00:13 19:53 WBC RBC Hgb 8.4 L Hct MCV MCH MCHC RDW Plt Count MPV Neut % (Auto) Lymph % (Auto) [place] % (Auto) Eos % (Auto) Baso % (Auto) Neut # (Auto) Lymph # (Auto) [place] # (Auto) Eos # (Auto) Baso # (Auto) Nucleated RBC % (auto) Nucleated RBCs # Sodium 139 Potassium 4.1 Chloride 103 Carbon Dioxide 23 Anion Gap 17.1 BUN 23 Creatinine 0.6 GFR Calculation Not Reportable Glucose 131 H Calculated Osmolality 293 Calcium 8.5 Total Bilirubin 0.2 AST 31 ALT 26 Alkaline Phosphatase 79 Total Protein 6.4 L Albumin 3.5 Globulin 2.9 Lipase 32 Urine Color Yellow Urine Appearance Cloudy A Urine pH 5 Ur Specific [place] 1.005 Urine Protein Trace Urine Glucose (UA) Norm Urine Ketones Negative Urine Blood 2+ H Urine Nitrate Positive H Urine Bilirubin Neg Urine Urobilinogen Neg Ur Leukocyte Esterase 2+ H Urine RBC 5-10 H Urine WBC Too numerous to cnt H Ur Squamous Epith Cells 0-4 H Amorphous Sediment Not Reportable Urine Bacteria 1+ H Urine Mucus 1+ 10/01/22 19:53 WBC 5.9 RBC 3.35 L Hgb 10.2 L Hct 31.5 L MCV 94.0 MCH 30.4 MCHC 32.4 RDW 12.9 Plt Count 380 MPV 10.0 Neut % (Auto) 77.5 Lymph % (Auto) 12.5 [place] % (Auto) 7.8 Eos % (Auto) 1.2 Baso % (Auto) 0.7 Neut # (Auto) 4.54 Lymph # (Auto) 0.7 L [place] # (Auto) 0.5 Eos # (Auto) 0.1 Baso # (Auto) 0.0 Nucleated RBC % (auto) 0 Nucleated RBCs # 0.0 Sodium Potassium Chloride Carbon Dioxide Anion Gap BUN Creatinine GFR Calculation Glucose Calculated Osmolality Calcium Total Bilirubin AST ALT Alkaline Phosphatase Total Protein Albumin Globulin Lipase Urine Color Urine Appearance Urine pH Ur Specific [place] Urine Protein Urine Glucose (UA) Urine Ketones Urine Blood Urine Nitrate Urine Bilirubin Urine Urobilinogen Ur Leukocyte Esterase Urine RBC Urine WBC Ur Squamous Epith Cells Amorphous Sediment Urine Bacteria Urine Mucus Completed Studies During Hospitalization Category Date Time Status CT abdomen pelvis w con* [id number] Stat Cat Scan 10/01/22 21:45 Completed Laboratory Last Values WBC 5.9 10^3/uL (4.0-10.0) 10/01/22 19:53 RBC 3.35 10^6/uL (4.1-5.3) L 10/01/22 19:53 Hgb 8.4 g/dL (11.5-15.3) L 10/02/22 00:13 Hct 31.5 % (37.0-47.0) L 10/01/22 19:53 MCV 94.0 fl (81-99) 10/01/22 19:53 MCH 30.4 pg (28.0-34.0) 10/01/22 19:53 MCHC 32.4 g/dL (30.0-36.0) 10/01/22 19:53 RDW 12.9 % (12.1-15.1) 10/01/22 19:53 Plt Count 380 10^3/cmm (130-400) 10/01/22 19:53 MPV 10.0 fL (7.4-10.4) 10/01/22 19:53 Neut % (Auto) 77.5 % 10/01/22 19:53 Lymph % (Auto) 12.5 % 10/01/22 19:53 [place] % (Auto) 7.8 % 10/01/22 19:53 Eos % (Auto) 1.2 % 10/01/22 19:53 Baso % (Auto) 0.7 % 10/01/22 19:53 Neut # (Auto) 4.54 10^3/uL (1.8-7.7) 10/01/22 19:53 Lymph # (Auto) 0.7 10^3/uL (0.8-4.8) L 10/01/22 19:53 [place] # (Auto) 0.5 10^3/uL (0.2-0.9) 10/01/22 19:53 Eos # (Auto) 0.1 10^3/uL (0.0-0.8) 10/01/22 19:53 Baso # (Auto) 0.0 10^3/uL (0.0-0.1) 10/01/22 19:53 Nucleated RBC % (auto) 0 % 10/01/22 19:53 Nucleated RBCs # 0.0 /100WBC 10/01/22 19:53 Sodium 139 mmol/L (136-145) 10/01/22 19:53 Potassium 4.1 mmol/L (3.5-5.1) 10/01/22 19:53 Chloride 103 mmol/L (98-107) 10/01/22 19:53 Carbon Dioxide 23 mmol/L (22-29) 10/01/22 19:53 Anion Gap 17.1 (5-19) 10/01/22 19:53 BUN 23 mg/dL (8-23) 10/01/22 19:53 Creatinine 0.6 mg/dL (0.5-0.9) 10/01/22 19:53 GFR Calculation Not Reportable 10/01/22 19:53 Glucose 131 mg/dL (65-115) H 10/01/22 19:53 Calculated Osmolality 293 mOsm/kg (285-295) 10/01/22 19:53 Calcium 8.5 mg/dL (8.5-10.5) 10/01/22 19:53 Total Bilirubin 0.2 mg/dL (0.15-1.2) 10/01/22 19:53 AST 31 U/L (0-32) 10/01/22 19:53 ALT 26 U/L (0-33) 10/01/22 19:53 Alkaline Phosphatase 79 U/L (35-105) 10/01/22 19:53 Total Protein 6.4 g/dL (6.6-8.7) L 10/01/22 19:53 Albumin 3.5 g/dL (3.5-5.2) 10/01/22 19:53 Globulin 2.9 g/dL (1.3-4.6) 10/01/22 19:53 Lipase 32 U/L (13-60) 10/01/22 19:53 Urine Color Yellow (Yellow) 10/02/22 02:55 Urine Appearance Cloudy (CLEAR) A 10/02/22 02:55 Urine pH 5 (5-7) 10/02/22 02:55 Ur Specific [place] 1.005 (1.005-1.030) 10/02/22 02:55 Urine Protein Trace (Negative) 10/02/22 02:55 Urine Glucose (UA) Norm (Normal) 10/02/22 02:55 Urine Ketones Negative (Negative) 10/02/22 02:55 Urine Blood 2+ (Negative) H 10/02/22 02:55 Urine Nitrate Positive (Negative) H 10/02/22 02:55 Urine Bilirubin Neg (Negative) 10/02/22 02:55 Urine Urobilinogen Neg mg/dL (Negative) 10/02/22 02:55 Ur Leukocyte Esterase 2+ (Negative) H 10/02/22 02:55 Urine RBC 5-10 /hpf (0-2) H 10/02/22 02:55 Urine WBC Too numerous to cnt /hpf (0-5) H 10/02/22 02:55 Ur Squamous Epith Cells 0-4 /hpf (0-5) H 10/02/22 02:55 Amorphous Sediment Not Reportable 10/02/22 02:55 Urine Bacteria 1+ /hpf (NONE) H 10/02/22 02:55 Urine Mucus 1+ /hpf 10/02/22 02:55 Radiology Impressions Abdomen/Pelvis CT 10/01/22 21:45 IMPRESSION: 1. Negative for contrast extravasation seen to indicate a source of gastrointestinal bleeding. 2. Emphysematous changes suspected. 3. Bibasilar atelectasis. 4. Several low-density hepatic lesions, 1 of which in the left hepatic lobe measures 12.6 mm and appears somewhat complicated. Further evaluation with non-emergent liver MRI is recommended. (Reference: Ran) 5. Bilateral renal cysts, negative for follow-up advised. 6. Minimal diverticulosis without diverticulitis. 7. Mild gastric wall thickening may reflect a gastritis in the appropriate clinical setting. 8. Several enlarged upper abdominal lymph nodes measuring up to 12.2 mm series 4, image 19, nonspecific. COMMENTS: Consistent with the [employer] [employer]'s Incidental Findings Committee white paper (J Am Latoya Radiol 2018): Any incidental renal lesion less than 1 cm or classified as too small to characterize, or any incidental cystic renal lesion characterized as simple-appearing, is likely benign. No follow-up imaging is recommended for these lesions per consensus recommendations based on imaging criteria. REFERENCES: Ran NORRIS, et al. Management of Incidental Liver Lesions on CT: A White Paper of the ACR Incidental Findings Committee. J Am Latoya Radiol. 2017;14(11):8673-8204. Recent Clincial Data Last Vital Signs Temp 97.8 F 10/02/22 10:30 Pulse 83 10/02/22 10:30 Resp 18 10/02/22 10:30 BP 145/96 10/02/22 10:30 Pulse Ox 99 10/02/22 10:30 O2 Del Method 10/02/22 10:30 O2 Flow Rate 3 10/02/22 10:16 Vital Signs Temp Pulse Resp BP Pulse Ox O2 Del Method O2 Flow Rate 10/02/22 10:25 87 18 136/99 96 Room Air 10/02/22 10:30 97.8 F 83 18 145/96 99 Room Air 10/02/22 10:20 87 18 142/81 98 Room Air 10/02/22 10:16 3 10/02/22 10:15 97.2 F L 87 16 172/92 100 Nasal Cannula 3 10/02/22 09:18 97.8 F 91 18 160/89 96 Room Air 10/02/22 07:44 98.2 F 81 16 128/79 96 Room Air 10/02/22 05:11 Room Air 10/02/22 04:00 98.1 F 76 16 119/74 99 Room Air 10/02/22 01:47 82 16 120/61 100 Room Air Intake & Output/Weight 09/30/22 10/01/22 10/02/22 10/03/22 06:59 06:59 06:59 06:59 Intake Total 1000 / 1000 800 / 800 Output Total 250 / 250 400 / 400 Balance 750 / 750 400 / 400 Weight 65.771 kg Vitals Last Vital Signs Temp 97.8 F 10/02/22 10:30 Pulse 83 10/02/22 10:30 Resp 18 10/02/22 10:30 BP 145/96 10/02/22 10:30 Pulse Ox 99 10/02/22 10:30 O2 Del Method 10/02/22 10:30 O2 Flow Rate 3 10/02/22 10:16 TS Medications Medications Acetaminophen (Acetaminophen 325 Mg Tablet) 650 mg PO Q6H PRN PRN Reason: Mild/Mod Pain Or Temp >/= 101 Pantoprazole Sodium 40 mg/ (Sodium Chloride) 100 mls @ 20 mls/hr IV .Q5H [facility] Last Infusion: 10/02/22 11:05 Dose: Infused Sodium Chloride (Sodium Chloride 0.9%) 1,000 mls @ 75 mls/hr IV .[id number] [facility] Last Admin: 10/02/22 07:11 Dose: 75 mls/hr Sodium Chloride (Sodium Chloride 0.9%) 1,000 mls @ 30 mls/hr IV .Q24H [facility] Stop: 10/03/22 09:14 Last Infusion: 10/02/22 10:34 Dose: Infused Lanolin (Lanolin Oint 7 Gm) 1 applic TOPICAL PRN PRN PRN Reason: DRYNESS Last Admin: 10/02/22 04:12 Dose: 1 applic Lidocaine HCl (Lidocaine 1% Inj 20 Ml) 0.1 ml INTRADERMA PRN PRN PRN Reason: anesthetic prior to IV start Stop: 10/03/22 09:07 Lidocaine HCl (Lidocaine 2% Viscous 15 Ml Udc) 1 ml TOPICAL PRN PRN PRN Reason: Anesthetic prior to IV start Midazolam HCl (Midazolam 1 Mg/Ml Inj 2 Ml) 2 mg IVP Q5M PRN PRN Reason: Preop Anxiety Morphine Sulfate (Morphine 4 Mg/Ml Sdv 1 Ml) 0 mg IVP Q5M PRN PRN Reason: Breakthrough Pain PACU PhaseII Ondansetron HCl (Ondansetron 2 Mg/Ml Sdv 2 Ml) 4 mg IVP Q8H PRN PRN Reason: vomiting, or N/V if npo Sodium Chloride (Sodium Chloride 0.9% 100 Ml Bag) 50 ml IV PRN PRN PRN Reason: Blood transfusion prime and flush Stop: 10/03/22 10:14 Discontinued Medications Benzocaine (Cetylpyridinium Lozenge) 1 each MUCOUS MEM ONCE ONE Stop: 10/02/22 09:09 Epinephrine HCl (Epinephrine 1 Mg/Ml Inj) 1 mg XX ONCE ONE Stop: 10/02/22 09:37 Epinephrine HCl (Epinephrine 1 Mg/Ml Inj) Confirm Administered Dose 1 mg .ROUTE .STK-MED ONE Stop: 10/02/22 09:41 Sodium Chloride (Sodium Chloride 0.9%) 1,000 mls @ 999 mls/hr IV .Q1H1M ONE Stop: 10/01/22 22:53 Last Infusion: 10/01/22 23:36 Dose: Infused Lidocaine HCl (Xylocaine) Confirm Administered Dose 5 mls @ as directed .ROUTE .STK-MED ONE Stop: 10/02/22 09:03 Iohexol (Iohexol 350 Mg/Ml 500 Ml Btl (Per Ml)) 0 ml IV ONCE ONE Stop: 10/01/22 22:52 Last Admin: 10/01/22 22:52 Dose: 100 ml Ondansetron HCl (Ondansetron 2 Mg/Ml Sdv 2 Ml) 4 mg IVP ONCE ONE Stop: 10/01/22 21:54 Last Admin: 10/01/22 22:35 Dose: 4 mg Pantoprazole Sodium (Pantoprazole 40 Mg Sdv) 80 mg IVP ONCE ONE Stop: 10/01/22 23:29 Last Admin: 10/01/22 23:55 Dose: 80 mg Propofol (Propofol 10 Mg/Ml Sdv 20 Ml) Confirm Administered Dose 200 mg .ROUTE .STK-MED ONE Stop: 10/02/22 09:03 Propofol (Propofol 10 Mg/Ml Sdv 20 Ml) Confirm Administered Dose 200 mg .ROUTE .STK-MED ONE Stop: 10/02/22 09:09 Succinylcholine Chloride (Succinylcholine 20 Mg/Ml Sdv 10ml) Confirm Administered Dose 200 mg .ROUTE .STK-MED ONE Stop: 10/02/22 09:50 Allergies No Known Allergies Allergy (Verified 10/02/22 08:23) Home Medications calcium carbonate 600 mg calcium (1,500 mg) tablet (Calcium) 600 mg PO DAILY 10/02/22 [History Confirmed 10/02/22] cholecalciferol (vitamin D3) 25 mcg (1,000 unit) capsule (Vitamin D3) 25 mcg PO DAILY 10/02/22 [History Confirmed 10/02/22] latanoprost 0.005 % eye drops 1 drp ophthalmic (eye) BEDTIME 10/02/22 [History Confirmed 10/02/22] lovastatin 40 mg tablet 40 mg PO QPM 10/02/22 [History Confirmed 10/02/22] axlgikqe-cis-ghild ac 400 mcg-calcium carb 500 mg-vit K1 20 mcg tablet (Women's 50 Plus Daily Formula) 1 tab PO DAILY 10/02/22 [History Confirmed 10/02/22] timolol maleate 0.5 % eye drops 1 drp ophthalmic (eye) BID 10/02/22 [History Confirmed 10/02/22] vitamin B12 2,500 mcg-folic acid 400 mcg disintegrating tablet 1 tab PO DAILY 10/02/22 [History Confirmed 10/02/22] Discharge Plan Discharge Patient Disposition: Home Condition: Stable Prescriptions: No Action latanoprost 0.005 % drops 1 drp ophthalmic (eye) BEDTIME lovastatin 40 mg tablet 40 mg PO QPM Calcium 600 600 mg calcium (1,500 mg) Tablet 600 mg PO DAILY timolol maleate 0.5 % drops 1 drp ophthalmic (eye) BID Vitamin D3 25 mcg (1,000 unit) Capsule 25 mcg PO DAILY Women's 50 Plus Daily Formula 400 mcg-500 mg calcium-20 mcg Tablet 1 tab PO DAILY vitamin [id number] acid 2,500-400 mcg Tablet,Disintegrating 1 tab PO DAILY Patient Instructions: GI Discharge Instructions, Opioid Safety Transfer Attestations Time Spent in Transfer Care: less than 30 min Quality Metrics Clinical Quality Measures [ No reported AMI, CVA or VTE this stay] Coding Level of Care Code Acute Code for Chg Fwd Diagnoses Upper gastrointestinal hemorrhage K92.2 Anemia D64.9
--- NOTE | 2022-10-02 11:35 | PC.NURSE ---
Pt arrived to ICU from [facility]. Pt alert and oriented. A fib noted on monitor. SBP 159. IV noted in Left AC, Protonix gtt started. Second IV obtained in right wrist. Pt oreitned to call light and room.. Family escorted back to room.
--- NOTE | 2022-10-02 11:37 | PC.NURSE ---
Pt was transferred up from GI Lab at around 1100. While transferring to hospital bed we noticed patient saturated in dark red blood. Pt at this time was alert/oriented, blood pressure 154/70 and sinus rhythm on telemetry. Airway appeared to be patent with no reports from pt of shortness of breath or difficulty swallowing. Dr. Castelan notified and transfer orders placed for ICU. Family at bedside and aware of transfer. Report called to JAVIER Michaud.
[2022-10-02 11:47] LABS: Hematocrit 28.5 % (37.0-47.0); Hemoglobin 8.7 g/dL (11.5-15.3)
--- NOTE | 2022-10-02 12:05 | PC.NURSE ---
Pt's heart rhythm converted back to sinus rhythm
[2022-10-02] MEDS: octreotide 500 MCG in sodium chloride 0.9% (100 ml) 100 ML 10.1 MCG IV (12:15)
[2022-10-02] MEDS: cefTRIAXone 1,000 MG in sodium chloride 0.9% (plus) 50 ML 100 MG IV (12:15)
--- NOTE | 2022-10-02 13:02 | ANE.PACU2 ---
Inpatient post-anesthesia follow up: Airway intact: Yes Vital signs: Temperature 98.2 F Pulse Rate 79 Respiratory Rate 17 Blood Pressure 154/94 Pulse Oximetry 97 Oxygen Delivery Me thod [ Room Air Current Rate & Del augustine] Oxygen Delivery Me thod Room Air Oxygen Flow Rate 3 Fraction of Inspir ed Oxygen Hydration adequate: Yes Nausea and vomiting: No Pain level: 1 Mental status: Baseline
[2022-10-02] MEDS: sodium chloride 0.9% (100 ml) 100 ML 50 ML (14:49)
--- NOTE | 2022-10-02 15:25 | PC.NURSE ---
Unit of blood, that is transfusing, to go w ith pt upon transfer. See Vital sign flowsheet for VS.
--- NOTE | 2022-10-02 15:35 | PC.NURSE ---
Pt discharged out of hospital with EMS to [facility] IN [place], [place]. Pt had dentures and glasses with her. Family took the rest of her belongings.
== END 2022-10-02 15:35 | disposition short-term general hospital (02) | DRG 379 ==
LOC: ER 10-02 01:03 → MEDSURG 10-02 01:20 → ICU 10-02 11:17
PROVIDERS: Physician Assistant; Surgery; Admitting Provider Student in an Organized Health Care Education/Training Program; Emergency Provider Emergency Medicine; Visit Provider Internal Medicine
PROC: 0DJ08ZZ Inspection of Upper Intestinal Tract, Via Natural or Artificial Opening Endoscopic (ICD-10-PCS; CPT 43235; principal; 2022-10-02 09:00)
DX: K92.0 Hematemesis (principal); D64.9 Anemia, unspecified; K76.9 Liver disease, unspecified; R59.0 Localized enlarged lymph nodes
CPT/HCPCS: 36415; 36430; 43235; 74177; 80053; 81001; 83690; 85014; 85018; 85025; 86850; 86900; 86920; 87077; 87086; 87186; 96361; 96374; 96375; 99285; C9113; J0330; J0696; J2354; J2405; J2704; J7030; P9016; Q9967

== ENCOUNTER 2022-10-14 05:41 | Outpatient (CLI) | payer MEDICARE, SELFPAY ==
--- NOTE | 2022-10-14 | PETR_ITS ---
PROCEDURE INFORMATION: Exam: PET/CT Whole Body Exam date and time: 10/14/2022 11:09 AM Age: 82 years old Clinical indication: Condition or disease; Primary cancer: Gastric adenocarcinoma; Initial oncological staging assessment LABS AND CLINICAL REPORTS: Glucose: 100 mg/dl Treatment strategy for malignancy (PET staging): Initial Staging (PI) TECHNIQUE: Imaging protocol: Following at least four-hour fasting and following the injection of F-18-FDG, low dose CT images were obtained. Then, PET images were obtained. Attenuation corrected images were constructed using the CT scan. Fused images of PET and CT were reviewed. The standardized uptake values (SUV) reported below are maximum values within a region of interest, expressed in gm/ml. Exam includes the whole body. Radiopharmaceutical: 16 mCi F-18 FDG (Fluorodeoxyglucose), IV. Time of imaging post radiopharmaceutical administration: 1 hour Injection site: Left antecubital COMPARISON: CT abdomen pelvis w con* [id number] 10/01/2022 10:47 PM FINDINGS: Brain: Visualized brain has normal physiologic uptake. Pharynx: No abnormal uptake. Larynx: No abnormal uptake. Lungs, pleura and trachea: No abnormal uptake. There are bilateral calcified granulomas. Heart: Normal physiologic uptake. Mediastinal space: No abnormal uptake. Liver: No abnormal uptake. Calcified granulomas in the liver are noted. Non radiotracer avid low-density lesions in the liver are present for example in the subcapsular posterior right liver lobe measuring 1.2 cm in diameter on series 4, image 96. Gallbladder and bile ducts: No abnormal uptake. Pancreas: No abnormal uptake. Spleen: No abnormal uptake. A calcified granuloma in the spleen is noted. Adrenal glands: No abnormal uptake. Kidneys and ureters: Normal physiologic uptake. Stomach and bowel: Elevated uptake in the proximal stomach is noted within areas of moderate similar lobulated wall thickening, SUV max 13.6. Vasculature: No abnormal uptake. There are diffuse atherosclerotic changes. Lymph nodes: There is elevated uptake in bilateral hilar lymph nodes. Uptake in the right hilar region within an approximately 8 mm lymph node demonstrates an SUV max 4.3 on series 5, image 74. Elevated uptake in the left hilar region is noted anteriorly with an SUV max 3.4 on PET series 5, image 72 and within an approximately 1 cm lymph node posteriorly on image 73, SUV max 3.5. Assessment of the size of the hilar lymph nodes is limited without intravenous contrast. A calcified subcarinal lymph node is noted with artifactual appearing low-level uptake. There are mildly prominent upper abdominal mesenteric lymph nodes along the medial aspect of the stomach as follows: Superiorly and medially with respect to the stomach measuring 1.2 cm in diameter on series 4, image 97, SUV max 3.2; medial to the stomach on series 4, image 102 measuring 2.1 x 1.5 cm, SUV max 2.6. Non radiotracer avid adjacent soft tissue density nodules medial to the anterior aspect of the spleen are identified on series 4, images 97 and 98, each of which measures 1.3-1.4 cm in diameter. These structures demonstrated a density which was lower than splenic tissue on the comparison CT of 10/01/2022. Bones/joints: No abnormal uptake in the visualized axial and appendicular skeleton. Diffuse degenerative vertebral body spondylosis is noted. Moderate thoracic spine kyphosis. No acute fracture is identified. Soft tissues: No abnormal uptake in the visualized head, neck, chest, abdomen, pelvis, and extremities. A moderate sized left knee popliteal/Garnett's cyst is noted. METRICS: Mediastinal blood pool: SUV max 2.1 PET/PET WB melanoma INITIAL [id number] IMPRESSION: 1. Abnormal uptake (SUV max 13.6) is noted in a region of proximal gastric wall thickening similar to the CT of 10/01/2022 compatible with malignancy. 2. Prominent lymph nodes medial to the stomach are radiotracer avid compatible with metastases. 3. Nodular densities adjacent to the spleen are not radiotracer avid. Although these could represent accessory splenic tissue, the density of these lesions on the prior contrasted CT was not similar to spleen concerning for additional metastatic lymph nodes. 4. Mild uptake within the bilateral hilar regions is noted. Although this uptake may be within lymph nodes reflecting underlying inflammatory or infectious involvement, a neoplastic etiology cannot be excluded. 5. Low-density lesions in the liver are noted which are not radiotracer avid with an appearance favoring benign cysts. 6. Additional nonurgent findings as detailed above.
== END 2022-10-14 05:42 | disposition home or self-care (01) ==
PROVIDERS: Visit Provider Student in an Organized Health Care Education/Training Program
DX: C16.2 Malignant neoplasm of body of stomach (principal)
CPT/HCPCS: 78816; A9552

== ENCOUNTER 2022-10-18 07:19 | Oncology outpatient (recurring) (ONCR) | payer MEDICARE, SELFPAY | END 2022-10-27 23:59 | disposition home or self-care (01) | PROVIDERS: PCP Family Medicine; Visit Provider Internal Medicine Hematology & Oncology | DX: C16.1 Malignant neoplasm of fundus of stomach (principal); R91.1 Solitary pulmonary nodule; J90 Pleural effusion, not elsewhere classified; J98.11 Atelectasis; R59.0 Localized enlarged lymph nodes; R63.4 Abnormal weight loss; Z68.26 Body mass index [BMI] 26.0-26.9, adult; K76.89 Other specified diseases of liver | CPT/HCPCS: 99204 ==

== ENCOUNTER 2022-11-21 08:30 | Oncology outpatient (recurring) (ONCR) | payer MEDICARE, SELFPAY ==
[2022-11-14 08:52] VITALS: BP 174/87; PULSE 76; RESP 16; TEMP 36.3
[2022-11-14 09:22] LABS: Basophils % 0.5 %; Eosinophils # 0.1 10^3/uL (0.0-0.8); Eosinophils % 1.9 %; Hematocrit 34.7 % (37.0-47.0); Lymphocytes # 1.2 10^3/uL (0.8-4.8); Lymphocytes % 16.4 %; Mean Corpuscular HGB Conc 31.7 g/dL (30.0-36.0); Mean Corpuscular Hemoglobin 29.8 pg (28.0-34.0); Mean Platelet Volume 10.1 fL (7.4-10.4); Monocytes # 0.8 10^3/uL (0.2-0.9); Monocytes % 11.2 %; Neutrophils # 5.17 10^3/uL (1.8-7.7); Neutrophils % 69.7 %; Nucleated Red Blood Cells % 0 %; Platelet Count 307 10^3/cmm (130-400); Red Blood Count 3.69 10^6/uL (4.1-5.3); Red Cell Distribution Width 14.6 % (12.1-15.1); White Blood Count 7.4 10^3/uL (4.0-10.0)
[2022-11-14 09:39] LABS: Alanine Aminotransferase 9 U/L (0-33); Albumin Level 3.6 g/dL (3.5-5.2); Alkaline Phosphatase 84 U/L (35-105); Anion Gap 12.1 (5-19); Aspartate Amino Transferase 18 U/L (0-32); Blood Urea Nitrogen 12 mg/dL (8-23); Calcium 8.1 mg/dL (8.5-10.5); Carbon Dioxide 25 mmol/L (22-29); Chloride 106 mmol/L (98-107); Globulin 2.6 g/dL (1.3-4.6); Glucose 84 mg/dL (65-115); Osmolality Calculated 287 mOsm/kg (285-295); Potassium 4.1 mmol/L (3.5-5.1); Sodium 139 mmol/L (136-145); Total Bilirubin 0.3 mg/dL (0.15-1.2); Total Protein 6.2 g/dL (6.6-8.7)
[2022-11-14] MEDS: palonosetron 0.25 mg/5 mL SDV IVP (10:10)
[2022-11-14] MEDS: dextrose 5% 250 ML 75 ML IV (10:10)
[2022-11-14] MEDS: oxaliplatin 100 MG, oxaliplatin 42 MG in dextrose 5% 250 ML 69.6 MG IV (10:43)
[2022-11-14] MEDS: leucovorin 660 MG in dextrose 5% 250 ML 62.5 MG IV (10:43)
[2022-11-14] MEDS: fluorouraciL 4,000 MG, elastomeric pump 1 PUMP in sodium chloride 0.9% (100 ml) 12 ML 2 MG IV (14:32)
[2022-11-14 14:40] VITALS: BP 151/72; PULSE 83; RESP 16; TEMP 36.3; O2SAT 95
[2022-11-16 12:00] VITALS: BP 182/92; PULSE 93; TEMP 38.1; O2SAT 99
[2022-11-21 08:33] VITALS: BP 160/76; PULSE 78; RESP 16; TEMP 36.6
[2022-11-21] MEDS: alteplase 1 mg/mL SDV 2 mL 2 MG INTRACATH (08:55)
[2022-11-21 09:14] LABS: Basophils % 0.4 %; Eosinophils # 0.2 10^3/uL (0.0-0.8); Eosinophils % 3.4 %; Hematocrit 34.5 % (37.0-47.0); Hemoglobin 10.7 g/dL (11.5-15.3); Lymphocytes # 0.8 10^3/uL (0.8-4.8); Lymphocytes % 15.9 %; Mean Corpuscular Hemoglobin 29.4 pg (28.0-34.0); Mean Corpuscular Volume 94.8 fl (81-99); Mean Platelet Volume 9.6 fL (7.4-10.4); Monocytes # 0.5 10^3/uL (0.2-0.9); Monocytes % 10.3 %; Neutrophils # 3.49 10^3/uL (1.8-7.7); Neutrophils % 69.2 %; Nucleated Red Blood Cells % 0 %; Platelet Count 332 10^3/cmm (130-400); Red Blood Count 3.64 10^6/uL (4.1-5.3); Red Cell Distribution Width 13.9 % (12.1-15.1)
[2022-11-21 09:30] LABS: Alanine Aminotransferase 14 U/L (0-33); Albumin Level 3.8 g/dL (3.5-5.2); Alkaline Phosphatase 85 U/L (35-105); Anion Gap 12.9 (5-19); Aspartate Amino Transferase 19 U/L (0-32); Blood Urea Nitrogen 17 mg/dL (8-23); Calcium 7.9 mg/dL (8.5-10.5); Carbon Dioxide 25 mmol/L (22-29); Chloride 105 mmol/L (98-107); Globulin 2.9 g/dL (1.3-4.6); Glucose 91 mg/dL (65-115); Osmolality Calculated 289 mOsm/kg (285-295); Potassium 3.9 mmol/L (3.5-5.1); Sodium 139 mmol/L (136-145); Total Bilirubin 0.2 mg/dL (0.15-1.2); Total Protein 6.7 g/dL (6.6-8.7)
== END 2022-11-26 23:59 | disposition home or self-care (01) ==
PROVIDERS: Internal Medicine Medical Oncology; PCP Family Medicine; Visit Provider Internal Medicine Hematology & Oncology
DX: C16.1 Malignant neoplasm of fundus of stomach (principal); R63.4 Abnormal weight loss; Z68.25 Body mass index [BMI] 25.0-25.9, adult; D64.9 Anemia, unspecified; Z79.899 Other long term (current) drug therapy; Z87.891 Personal history of nicotine dependence
CPT/HCPCS: 36415; 36593; 80053; 85025; 87040; 96366; 96367; 96368; 96375; 96413; 96415; 96416; 96417; 96523; 99214; J0640; J1100; J2469; J2997; J7060; J9190; J9263

== ENCOUNTER → 2022-11-28 07:35 | Outpatient (BNVA) | payer MEDICARE, SELFPAY | PROVIDERS: PCP Family Medicine; Visit Provider Nurse Practitioner Family | DX: C16.1 Malignant neoplasm of fundus of stomach (principal) | CPT/HCPCS: 99214 ==

== ENCOUNTER 2022-12-27 07:30 | Oncology outpatient (recurring) (ONCR) | payer MEDICARE, SELFPAY ==
[2022-11-28 07:57] VITALS: BMI 25.9
[2022-11-28 08:02] LABS: Basophils % 0.3 %; Eosinophils # 0.1 10^3/uL (0.0-0.8); Eosinophils % 2.1 %; Hematocrit 32.2 % (37.0-47.0); Hemoglobin 10.2 g/dL (11.5-15.3); Lymphocytes # 0.8 10^3/uL (0.8-4.8); Lymphocytes % 12.1 %; Mean Corpuscular HGB Conc 31.7 g/dL (30.0-36.0); Mean Corpuscular Hemoglobin 29.2 pg (28.0-34.0); Mean Corpuscular Volume 92.3 fl (81-99); Mean Platelet Volume 9.2 fL (7.4-10.4); Monocytes # 0.9 10^3/uL (0.2-0.9); Monocytes % 14.7 %; Neutrophils % 70.3 %; Nucleated Red Blood Cells % 0 %; Platelet Count 399 10^3/cmm (130-400); Red Blood Count 3.49 10^6/uL (4.1-5.3); Red Cell Distribution Width 13.8 % (12.1-15.1); White Blood Count 6.3 10^3/uL (4.0-10.0)
[2022-11-28 08:30] LABS: Alanine Aminotransferase 14 U/L (0-33); Albumin Level 3.5 g/dL (3.5-5.2); Alkaline Phosphatase 88 U/L (35-105); Aspartate Amino Transferase 19 U/L (0-32); Blood Urea Nitrogen 17 mg/dL (8-23); Carbon Dioxide 25 mmol/L (22-29); Chloride 104 mmol/L (98-107); Creatinine Clr Calc Pharmacy 46.1323; Globulin 3.4 g/dL (1.3-4.6); Glucose 108 mg/dL (65-115); Osmolality Calculated 294 mOsm/kg (285-295); Sodium 141 mmol/L (136-145); Total Bilirubin 0.2 mg/dL (0.15-1.2); Total Protein 6.9 g/dL (6.6-8.7)
[2022-11-28] MEDS: dextrose 5% 250 ML 75 ML IV (10:46)
[2022-11-28] MEDS: palonosetron 0.25 mg/5 mL SDV IVP (10:46)
[2022-11-28] MEDS: leucovorin 660 MG in dextrose 5% 250 ML 62.5 MG IV (11:14)
[2022-11-28] MEDS: oxaliplatin 100 MG, oxaliplatin 42 MG in dextrose 5% 250 ML 69.6 MG IV (11:15)
[2022-11-28] MEDS: fluorouraciL 4,000 MG, elastomeric pump 1 PUMP in sodium chloride 0.9% (100 ml) 12 ML 2 MG IV (14:29)
[2022-11-28 14:45] VITALS: BP 144/82; PULSE 78; RESP 20; TEMP 36.2; O2SAT 98
[2022-11-30 13:16] VITALS: BP 176/92; PULSE 91; RESP 16; TEMP 36.9; O2SAT 97
[2022-12-05 09:50] LABS: Basophils % 0.6 %; Eosinophils # 0.1 10^3/uL (0.0-0.8); Eosinophils % 2.2 %; Hematocrit 33.2 % (37.0-47.0); Hemoglobin 10.4 g/dL (11.5-15.3); Lymphocytes # 0.9 10^3/uL (0.8-4.8); Lymphocytes % 16.8 %; Mean Corpuscular HGB Conc 31.3 g/dL (30.0-36.0); Mean Corpuscular Hemoglobin 29.1 pg (28.0-34.0); Mean Corpuscular Volume 92.7 fl (81-99); Mean Platelet Volume 9.3 fL (7.4-10.4); Monocytes # 0.7 10^3/uL (0.2-0.9); Monocytes % 13.5 %; Neutrophils # 3.31 10^3/uL (1.8-7.7); Neutrophils % 65.5 %; Nucleated Red Blood Cells % 0 %; Platelet Count 432 10^3/cmm (130-400); Red Blood Count 3.58 10^6/uL (4.1-5.3); Red Cell Distribution Width 13.3 % (12.1-15.1); White Blood Count 5.1 10^3/uL (4.0-10.0)
[2022-12-05 10:15] LABS: Alanine Aminotransferase 17 U/L (0-33); Albumin Level 3.5 g/dL (3.5-5.2); Alkaline Phosphatase 89 U/L (35-105); Aspartate Amino Transferase 29 U/L (0-32); Chloride 104 mmol/L (98-107); Potassium 4.6 mmol/L (3.5-5.1); Sodium 138 mmol/L (136-145)
[2022-12-05 10:35] LABS: Blood Urea Nitrogen 16 mg/dL (8-23); Calcium 8.3 mg/dL (8.5-10.5); Carbon Dioxide 24 mmol/L (22-29); Creatinine Clr Calc Pharmacy 46.1323; Globulin 3.4 g/dL (1.3-4.6); Glucose 114 mg/dL (65-115); Osmolality Calculated 284 mOsm/kg (285-295); Total Bilirubin 0.2 mg/dL (0.15-1.2); Total Protein 6.9 g/dL (6.6-8.7)
[2022-12-11 10:31] VITALS: BP 168/81; PULSE 82; RESP 18; TEMP 36.2; O2SAT 97
--- NOTE | 2022-12-11 10:47 | PC.NURSE ---
patient left accessed for treatment tomorrow. Dressing applied with date
[2022-12-11 10:48] LABS: Basophils % 0.4 %; Eosinophils # 0.1 10^3/uL (0.0-0.8); Eosinophils % 1.8 %; Hematocrit 32.7 % (37.0-47.0); Hemoglobin 10.5 g/dL (11.5-15.3); Lymphocytes # 0.9 10^3/uL (0.8-4.8); Lymphocytes % 16.6 %; Mean Corpuscular HGB Conc 32.1 g/dL (30.0-36.0); Mean Corpuscular Hemoglobin 29.5 pg (28.0-34.0); Mean Corpuscular Volume 91.9 fl (81-99); Mean Platelet Volume 9.1 fL (7.4-10.4); Monocytes # 0.8 10^3/uL (0.2-0.9); Monocytes % 13.5 %; Neutrophils # 3.78 10^3/uL (1.8-7.7); Neutrophils % 67.3 %; Nucleated Red Blood Cells % 0 %; Platelet Count 369 10^3/cmm (130-400); Red Blood Count 3.56 10^6/uL (4.1-5.3); Red Cell Distribution Width 13.9 % (12.1-15.1); White Blood Count 5.6 10^3/uL (4.0-10.0)
[2022-12-11 11:15] LABS: Alanine Aminotransferase 21 U/L (0-33); Albumin Level 3.7 g/dL (3.5-5.2); Alkaline Phosphatase 95 U/L (35-105); Anion Gap 14.2 (5-19); Aspartate Amino Transferase 30 U/L (0-32); Carbon Dioxide 25 mmol/L (22-29); Chloride 104 mmol/L (98-107); Creatinine Clr Calc Pharmacy 46.1323; Globulin 2.9 g/dL (1.3-4.6); Glucose 112 mg/dL (65-115); Potassium 4.2 mmol/L (3.5-5.1); Sodium 139 mmol/L (136-145); Total Bilirubin 0.2 mg/dL (0.15-1.2); Total Protein 6.6 g/dL (6.6-8.7)
[2022-12-11 11:35] LABS: Calcium 8.8 mg/dL (8.5-10.5)
[2022-12-11 11:49] LABS: Blood Urea Nitrogen 14 mg/dL (8-23); Osmolality Calculated 289 mOsm/kg (285-295)
[2022-12-12] MEDS: dextrose 5% 250 ML 75 ML IV (09:49)
[2022-12-12] MEDS: palonosetron 0.25 mg/5 mL SDV IVP (09:50)
[2022-12-12] MEDS: leucovorin 660 MG in dextrose 5% 250 ML 62.5 MG IV (10:20)
[2022-12-12] MEDS: oxaliplatin 100 MG, oxaliplatin 42 MG in dextrose 5% 250 ML 69.6 MG IV (10:20)
[2022-12-12 13:52] VITALS: BP 170/70; PULSE 74; RESP 16; TEMP 36.4; O2SAT 97
[2022-12-12] MEDS: fluorouraciL 4,000 MG, elastomeric pump 1 PUMP in sodium chloride 0.9% (100 ml) 12 ML 2 MG IV (13:52)
[2022-12-14 13:15] VITALS: BP 184/82; PULSE 76; RESP 16; TEMP 36.2; O2SAT 100
[2022-12-19 10:42] VITALS: BP 160/80; PULSE 71; RESP 16; TEMP 35.8; O2SAT 98
[2022-12-19 11:05] LABS: Basophils % 0.7 %; Eosinophils # 0.1 10^3/uL (0.0-0.8); Eosinophils % 3.2 %; Hematocrit 32.8 % (37.0-47.0); Hemoglobin 10.5 g/dL (11.5-15.3); Lymphocytes % 37.4 %; Mean Corpuscular Hemoglobin 29.7 pg (28.0-34.0); Mean Corpuscular Volume 92.9 fl (81-99); Mean Platelet Volume 9.7 fL (7.4-10.4); Monocytes # 0.4 10^3/uL (0.2-0.9); Monocytes % 13.3 %; Neutrophils # 1.22 10^3/uL (1.8-7.7); Nucleated Red Blood Cells % 0 %; Platelet Count 262 10^3/cmm (130-400); Red Blood Count 3.53 10^6/uL (4.1-5.3); Red Cell Distribution Width 14.2 % (12.1-15.1); White Blood Count 2.8 10^3/uL (4.0-10.0)
[2022-12-19 11:23] LABS: Alanine Aminotransferase 24 U/L (0-33); Albumin Level 3.8 g/dL (3.5-5.2); Alkaline Phosphatase 74 U/L (35-105); Anion Gap 13.3 (5-19); Aspartate Amino Transferase 31 U/L (0-32); Blood Urea Nitrogen 14 mg/dL (8-23); Calcium 8.4 mg/dL (8.5-10.5); Carbon Dioxide 25 mmol/L (22-29); Chloride 105 mmol/L (98-107); Creatinine Clr Calc Pharmacy 45.2329; Glucose 92 mg/dL (65-115); Osmolality Calculated 288 mOsm/kg (285-295); Potassium 4.3 mmol/L (3.5-5.1); Sodium 139 mmol/L (136-145); Total Bilirubin 0.2 mg/dL (0.15-1.2); Total Protein 6.8 g/dL (6.6-8.7)
[2022-12-27 07:33] VITALS: BP 180/92; PULSE 68; RESP 18; TEMP 36.2; O2SAT 98
[2022-12-27 08:00] LABS: Basophils % 0.8 %; Eosinophils # 0.1 10^3/uL (0.0-0.8); Eosinophils % 3.3 %; Hematocrit 33.4 % (37.0-47.0); Hemoglobin 10.6 g/dL (11.5-15.3); Lymphocytes # 0.9 10^3/uL (0.8-4.8); Mean Corpuscular HGB Conc 31.7 g/dL (30.0-36.0); Mean Corpuscular Hemoglobin 29.8 pg (28.0-34.0); Mean Corpuscular Volume 93.8 fl (81-99); Mean Platelet Volume 10.1 fL (7.4-10.4); Monocytes # 0.6 10^3/uL (0.2-0.9); Monocytes % 16.1 %; Neutrophils # 2.17 10^3/uL (1.8-7.7); Neutrophils % 55.5 %; Nucleated Red Blood Cells % 0 %; Platelet Count 160 10^3/cmm (130-400); Red Blood Count 3.56 10^6/uL (4.1-5.3); White Blood Count 3.9 10^3/uL (4.0-10.0)
[2022-12-27 08:24] LABS: Alanine Aminotransferase 22 U/L (0-33); Albumin Level 3.9 g/dL (3.5-5.2); Alkaline Phosphatase 77 U/L (35-105); Anion Gap 10.1 (5-19); Aspartate Amino Transferase 32 U/L (0-32); Blood Urea Nitrogen 13 mg/dL (8-23); Calcium 8.3 mg/dL (8.5-10.5); Carbon Dioxide 26 mmol/L (22-29); Chloride 108 mmol/L (98-107); Globulin 2.5 g/dL (1.3-4.6); Glucose 84 mg/dL (65-115); Osmolality Calculated 289 mOsm/kg (285-295); Potassium 4.1 mmol/L (3.5-5.1); Sodium 140 mmol/L (136-145); Total Bilirubin 0.2 mg/dL (0.15-1.2); Total Protein 6.4 g/dL (6.6-8.7)
[2022-12-27] MEDS: dextrose 5% 250 ML 75 ML IV (09:50)
[2022-12-27] MEDS: palonosetron 0.25 mg/5 mL SDV IVP (09:52)
[2022-12-27] MEDS: oxaliplatin 100 MG, oxaliplatin 42 MG in dextrose 5% 250 ML 69.6 MG IV (10:32)
[2022-12-27] MEDS: leucovorin 660 MG in dextrose 5% 250 ML 62.5 MG IV (10:32)
[2022-12-27 14:10] VITALS: BP 169/82; PULSE 70; RESP 16; TEMP 36.7; O2SAT 98
[2022-12-27] MEDS: fluorouraciL 4,000 MG, elastomeric pump 1 PUMP in sodium chloride 0.9% (100 ml) 12 ML 2 MG IV (14:10)
== END 2022-12-27 23:59 | disposition home or self-care (01) ==
PROVIDERS: Internal Medicine Medical Oncology; Nurse Practitioner Family; PCP Family Medicine; Visit Provider Internal Medicine Hematology & Oncology
DX: C16.1 Malignant neoplasm of fundus of stomach (principal); Z51.11 Encounter for antineoplastic chemotherapy; Z87.891 Personal history of nicotine dependence
CPT/HCPCS: 36591; 80053; 85025; 96368; 96374; 96375; 96413; 96415; 96416; 96417; 96523; 99213; 99214; J0640; J1100; J1642; J2469; J7060; J9190; J9263

== ENCOUNTER → 2023-01-10 08:05 | Outpatient (BNVA) | payer MEDICARE, SELFPAY | PROVIDERS: PCP Family Medicine; Visit Provider Nurse Practitioner | DX: Z53.9 Procedure and treatment not carried out, unspecified reason (principal) | CPT/HCPCS: 99214 ==

== ENCOUNTER 2023-01-26 11:30 | Oncology outpatient (recurring) (ONCR) | payer MEDICARE, SELFPAY ==
[2022-12-29 11:20] VITALS: BP 160/78; PULSE 67; RESP 16; TEMP 36.5; O2SAT 99
[2023-01-03 07:18] VITALS: BP 166/93; PULSE 72; RESP 18; TEMP 36.1; O2SAT 99
[2023-01-03 07:39] LABS: Basophils % 1.1 %; Eosinophils # 0.1 10^3/uL (0.0-0.8); Eosinophils % 5.3 %; Hematocrit 33.6 % (37.0-47.0); Hemoglobin 10.8 g/dL (11.5-15.3); Lymphocytes # 0.9 10^3/uL (0.8-4.8); Lymphocytes % 47.9 %; Mean Corpuscular HGB Conc 32.1 g/dL (30.0-36.0); Mean Corpuscular Hemoglobin 30.3 pg (28.0-34.0); Mean Corpuscular Volume 94.4 fl (81-99); Mean Platelet Volume 10.2 fL (7.4-10.4); Monocytes # 0.2 10^3/uL (0.2-0.9); Monocytes % 12.6 %; Neutrophils % 32.6 %; Nucleated Red Blood Cells % 0 %; Platelet Count 160 10^3/cmm (130-400); Red Blood Count 3.56 10^6/uL (4.1-5.3); Red Cell Distribution Width 16.2 % (12.1-15.1); White Blood Count 1.9 10^3/uL (4.0-10.0)
[2023-01-03 08:06] LABS: Alanine Aminotransferase 34 U/L (0-33); Albumin Level 3.8 g/dL (3.5-5.2); Alkaline Phosphatase 75 U/L (35-105); Anion Gap 13.4 (5-19); Aspartate Amino Transferase 40 U/L (0-32); Blood Urea Nitrogen 11 mg/dL (8-23); Calcium 8.6 mg/dL (8.5-10.5); Carbon Dioxide 23 mmol/L (22-29); Chloride 107 mmol/L (98-107); Globulin 2.8 g/dL (1.3-4.6); Glucose 82 mg/dL (65-115); Osmolality Calculated 286 mOsm/kg (285-295); Potassium 4.4 mmol/L (3.5-5.1); Sodium 139 mmol/L (136-145); Total Bilirubin 0.2 mg/dL (0.15-1.2); Total Protein 6.6 g/dL (6.6-8.7)
[2023-01-03 08:07] LABS: Neutrophils # 0.62 10^3/uL (1.8-7.7)
[2023-01-10 08:19] VITALS: BP 177/91; PULSE 91; RESP 18; TEMP 36.2; O2SAT 98
[2023-01-10 08:30] LABS: Basophils % 0.6 %; Eosinophils # 0.1 10^3/uL (0.0-0.8); Eosinophils % 3.6 %; Hematocrit 32.8 % (37.0-47.0); Hemoglobin 10.4 g/dL (11.5-15.3); Lymphocytes % 30.7 %; Mean Corpuscular HGB Conc 31.7 g/dL (30.0-36.0); Mean Corpuscular Hemoglobin 29.8 pg (28.0-34.0); Mean Platelet Volume 10.5 fL (7.4-10.4); Monocytes # 0.6 10^3/uL (0.2-0.9); Monocytes % 17.2 %; Neutrophils # 1.58 10^3/uL (1.8-7.7); Neutrophils % 47.6 %; Nucleated Red Blood Cells % 0 %; Platelet Count 122 10^3/cmm (130-400); Red Blood Count 3.49 10^6/uL (4.1-5.3); Red Cell Distribution Width 17.6 % (12.1-15.1); White Blood Count 3.3 10^3/uL (4.0-10.0)
[2023-01-10 09:10] LABS: Alanine Aminotransferase 34 U/L (0-33); Albumin Level 3.9 g/dL (3.5-5.2); Alkaline Phosphatase 80 U/L (35-105); Aspartate Amino Transferase 42 U/L (0-32); Blood Urea Nitrogen 14 mg/dL (8-23); Carbon Dioxide 24 mmol/L (22-29); Chloride 106 mmol/L (98-107); Globulin 2.5 g/dL (1.3-4.6); Glucose 81 mg/dL (65-115); Osmolality Calculated 290 mOsm/kg (285-295); Sodium 140 mmol/L (136-145); Total Bilirubin 0.3 mg/dL (0.15-1.2); Total Protein 6.4 g/dL (6.6-8.7)
[2023-01-10] MEDS: dextrose 5% 250 ML 75 ML IV (11:05)
[2023-01-10] MEDS: palonosetron 0.25 mg/5 mL SDV IVP (11:06)
[2023-01-10] MEDS: leucovorin 660 MG in dextrose 5% 250 ML 62.5 MG IV (12:11)
[2023-01-10 13:35] VITALS: BP 137/68; PULSE 64; RESP 18; TEMP 36.4; O2SAT 96
[2023-01-10] MEDS: fluorouraciL 3,600 MG, elastomeric pump 1 PUMP in sodium chloride 0.9% (100 ml) 20 ML IV (15:29)
--- NOTE | 2023-01-10 17:22 | PC.NURSE ---
Patient finished her treatment with the 5FU bulb attached to the IV line with the clamps secured and taped with no issues noted and bag for transport for her assistance secured around her waist. She denies any issues or concerns at this time.[email or web address]
[2023-01-12 10:15] VITALS: BP 157/82; PULSE 75; O2SAT 94
[2023-01-17 08:20] VITALS: BP 137/79; PULSE 74; RESP 18; TEMP 36.2; O2SAT 98
[2023-01-17 08:31] LABS: Basophils % 0.5 %; Eosinophils # 0.1 10^3/uL (0.0-0.8); Eosinophils % 3.5 %; Hematocrit 33.4 % (37.0-47.0); Hemoglobin 10.4 g/dL (11.5-15.3); Lymphocytes # 1.1 10^3/uL (0.8-4.8); Lymphocytes % 54.5 %; Mean Corpuscular HGB Conc 31.1 g/dL (30.0-36.0); Mean Corpuscular Hemoglobin 29.5 pg (28.0-34.0); Mean Corpuscular Volume 94.6 fl (81-99); Mean Platelet Volume 10.2 fL (7.4-10.4); Monocytes # 0.3 10^3/uL (0.2-0.9); Monocytes % 15.2 %; Neutrophils % 24.8 %; Nucleated Red Blood Cells % 0 %; Platelet Count 155 10^3/cmm (130-400); Red Blood Count 3.53 10^6/uL (4.1-5.3); Red Cell Distribution Width 17.2 % (12.1-15.1)
[2023-01-17 08:55] LABS: Alanine Aminotransferase 45 U/L (0-33); Alkaline Phosphatase 78 U/L (35-105); Anion Gap 14.1 (5-19); Aspartate Amino Transferase 50 U/L (0-32); Blood Urea Nitrogen 12 mg/dL (8-23); Calcium 8.5 mg/dL (8.5-10.5); Carbon Dioxide 24 mmol/L (22-29); Chloride 104 mmol/L (98-107); Globulin 2.7 g/dL (1.3-4.6); Glucose 97 mg/dL (65-115); Osmolality Calculated 286 mOsm/kg (285-295); Potassium 4.1 mmol/L (3.5-5.1); Sodium 138 mmol/L (136-145); Total Bilirubin 0.2 mg/dL (0.15-1.2); Total Protein 6.7 g/dL (6.6-8.7)
[2023-01-17 09:01] LABS: Neutrophils # 0.49 10^3/uL (1.8-7.7)
[2023-01-24 09:40] VITALS: BP 173/93; PULSE 60; RESP 18; TEMP 36.5; O2SAT 96
[2023-01-24 09:57] LABS: Basophils % 0.9 %; Eosinophils # 0.1 10^3/uL (0.0-0.8); Hematocrit 33.6 % (37.0-47.0); Hemoglobin 10.9 g/dL (11.5-15.3); Lymphocytes % 28.1 %; Mean Corpuscular HGB Conc 32.4 g/dL (30.0-36.0); Mean Corpuscular Hemoglobin 30.8 pg (28.0-34.0); Mean Corpuscular Volume 94.9 fl (81-99); Mean Platelet Volume 10.9 fL (7.4-10.4); Monocytes # 0.7 10^3/uL (0.2-0.9); Monocytes % 19.1 %; Neutrophils % 49.3 %; Nucleated Red Blood Cells % 0 %; Platelet Count 147 10^3/cmm (130-400); Red Blood Count 3.54 10^6/uL (4.1-5.3); Red Cell Distribution Width 18.5 % (12.1-15.1); White Blood Count 3.5 10^3/uL (4.0-10.0)
[2023-01-24 10:16] LABS: Alanine Aminotransferase 30 U/L (0-33); Albumin Level 4.1 g/dL (3.5-5.2); Alkaline Phosphatase 80 U/L (35-105); Aspartate Amino Transferase 38 U/L (0-32); Blood Urea Nitrogen 12 mg/dL (8-23); Calcium 8.6 mg/dL (8.5-10.5); Carbon Dioxide 25 mmol/L (22-29); Chloride 108 mmol/L (98-107); Globulin 2.5 g/dL (1.3-4.6); Glucose 85 mg/dL (65-115); Osmolality Calculated 291 mOsm/kg (285-295); Sodium 141 mmol/L (136-145); Total Bilirubin 0.2 mg/dL (0.15-1.2); Total Protein 6.6 g/dL (6.6-8.7)
[2023-01-24] MEDS: dextrose 5% 250 ML 75 ML IV (12:17)
[2023-01-24] MEDS: palonosetron 0.25 mg/5 mL SDV IVP (12:18)
[2023-01-24] MEDS: leucovorin 660 MG in dextrose 5% 250 ML 62.5 MG IV (13:01)
[2023-01-24] MEDS: fluorouraciL 3,600 MG, elastomeric pump 1 PUMP in sodium chloride 0.9% (100 ml) 20 ML IV (16:17)
[2023-01-24 16:25] VITALS: BP 195/95; PULSE 81; RESP 18; TEMP 36.6; O2SAT 99
[2023-01-26 11:05] VITALS: BP 163/90; PULSE 81; RESP 16; TEMP 37.1; O2SAT 97
== END 2023-01-26 23:59 | disposition home or self-care (01) ==
PROVIDERS: Nurse Practitioner; Nurse Practitioner Family; PCP Family Medicine; Visit Provider Internal Medicine Hematology & Oncology
DX: C16.1 Malignant neoplasm of fundus of stomach (principal)
CPT/HCPCS: 96367 ×2; 96366 ×2; 96413 ×2; 96417; 96415 ×2; 96375 ×2; 96411; 36591; 80053; 85025; 96523; 99214; J0640; J1100; J1642; J2469; J7060; J9190; J9263

== ENCOUNTER 2023-02-22 08:00 | Oncology outpatient (recurring) (ONCR) | payer MEDICARE, SELFPAY ==
[2023-02-07 07:45] VITALS: BP 174/74; PULSE 77; RESP 18; TEMP 36.1; O2SAT 99
[2023-02-07 07:56] LABS: Basophils % 0.8 %; Eosinophils # 0.1 10^3/uL (0.0-0.8); Eosinophils % 2.4 %; Hematocrit 32.9 % (37.0-47.0); Hemoglobin 10.5 g/dL (11.5-15.3); Lymphocytes # 0.9 10^3/uL (0.8-4.8); Lymphocytes % 24.3 %; Mean Corpuscular HGB Conc 31.9 g/dL (30.0-36.0); Mean Corpuscular Hemoglobin 30.4 pg (28.0-34.0); Mean Corpuscular Volume 95.4 fl (81-99); Mean Platelet Volume 9.8 fL (7.4-10.4); Monocytes # 0.8 10^3/uL (0.2-0.9); Monocytes % 20.9 %; Neutrophils # 1.96 10^3/uL (1.8-7.7); Neutrophils % 51.3 %; Nucleated Red Blood Cells % 0 %; Platelet Count 134 10^3/cmm (130-400); Red Blood Count 3.45 10^6/uL (4.1-5.3); White Blood Count 3.8 10^3/uL (4.0-10.0)
[2023-02-07 08:23] LABS: Alanine Aminotransferase 31 U/L (0-33); Albumin Level 3.8 g/dL (3.5-5.2); Alkaline Phosphatase 91 U/L (35-105); Anion Gap 11.6 (5-19); Aspartate Amino Transferase 39 U/L (0-32); Blood Urea Nitrogen 11 mg/dL (8-23); Calcium 8.8 mg/dL (8.5-10.5); Carbon Dioxide 25 mmol/L (22-29); Chloride 105 mmol/L (98-107); Creatinine Clr Calc Pharmacy 44.6329; Globulin 2.5 g/dL (1.3-4.6); Glucose 100 mg/dL (65-115); Osmolality Calculated 285 mOsm/kg (285-295); Potassium 3.6 mmol/L (3.5-5.1); Sodium 138 mmol/L (136-145); Total Bilirubin 0.2 mg/dL (0.15-1.2); Total Protein 6.3 g/dL (6.6-8.7)
[2023-02-07 08:57] VITALS: BP 112/78; PULSE 78; RESP 18; TEMP 36.6; O2SAT 98
[2023-02-22 07:56] VITALS: BMI 24.1
[2023-02-22 07:57] VITALS: BP 159/86; PULSE 64; RESP 18; TEMP 35.7; O2SAT 98
[2023-02-22 08:16] LABS: Basophils # 0.1 10^3/uL (0.0-0.1); Basophils % 1.2 %; Eosinophils # 0.1 10^3/uL (0.0-0.8); Eosinophils % 2.1 %; Hematocrit 34.8 % (37.0-47.0); Lymphocytes # 1.4 10^3/uL (0.8-4.8); Lymphocytes % 22.9 %; Mean Corpuscular HGB Conc 31.6 g/dL (30.0-36.0); Mean Corpuscular Hemoglobin 30.8 pg (28.0-34.0); Mean Corpuscular Volume 97.5 fl (81-99); Mean Platelet Volume 9.9 fL (7.4-10.4); Monocytes # 0.9 10^3/uL (0.2-0.9); Monocytes % 14.5 %; Neutrophils # 3.58 10^3/uL (1.8-7.7); Nucleated Red Blood Cells % 0 %; Platelet Count 218 10^3/cmm (130-400); Red Blood Count 3.57 10^6/uL (4.1-5.3); Red Cell Distribution Width 17.5 % (12.1-15.1); White Blood Count 6.1 10^3/uL (4.0-10.0)
[2023-02-22 08:34] LABS: Alanine Aminotransferase 25 U/L (0-33); Albumin Level 4.1 g/dL (3.5-5.2); Alkaline Phosphatase 96 U/L (35-105); Anion Gap 12.3 (5-19); Aspartate Amino Transferase 31 U/L (0-32); Blood Urea Nitrogen 18 mg/dL (8-23); Calcium 8.8 mg/dL (8.5-10.5); Carbon Dioxide 26 mmol/L (22-29); Chloride 106 mmol/L (98-107); Creatinine Clr Calc Pharmacy 44.6329; Globulin 2.4 g/dL (1.3-4.6); Glucose 90 mg/dL (65-115); Osmolality Calculated 291 mOsm/kg (285-295); Potassium 4.3 mmol/L (3.5-5.1); Sodium 140 mmol/L (136-145); Total Bilirubin 0.3 mg/dL (0.15-1.2); Total Protein 6.5 g/dL (6.6-8.7)
== END 2023-02-26 23:59 | disposition home or self-care (01) ==
PROVIDERS: PCP Family Medicine; Visit Provider Internal Medicine Hematology & Oncology
DX: C16.1 Malignant neoplasm of fundus of stomach (principal); Z51.11 Encounter for antineoplastic chemotherapy; Z90.89 Acquired absence of other organs; Z79.899 Other long term (current) drug therapy; Z45.1 Encounter for adjustment and management of infusion pump
CPT/HCPCS: 80053; 85025; 99214; J1642

== ENCOUNTER 2023-03-10 05:59 | Outpatient (CLI) | payer MEDICARE, SELFPAY ==
--- NOTE | 2023-03-10 08:00 | PETR_ITS ---
PROCEDURE INFORMATION: Exam: PET/CT Skull Base to Mid-thigh Exam date and time: 03/10/2023 8:52 AM Age: 82 years old Clinical indication: Condition or disease; Primary cancer: Malignant neoplasm of fundus of stomach; Follow-up oncological assessment; Prior surgery; Surgery date: 6+ months; Surgery type: Appy; Additional info: LABS AND CLINICAL REPORTS: Glucose: 109 mg/dl Treatment strategy for malignancy (PET staging): Restaging (PS) TECHNIQUE: Imaging protocol: Following at least four-hour fasting and following the injection of radiopharmaceutical, low dose CT images were obtained. Then, PET images were obtained. Attenuation corrected images were constructed using the CT scan. Fused images of PET and CT were reviewed. The standardized uptake values (SUV) reported below are maximum values within a region of interest, expressed in gm/ml. Exam includes orbital meatal line to mid-thigh. Radiopharmaceutical: 13.34 mCi F-18 FDG (Fluorodeoxyglucose), IV. Time of imaging post radiopharmaceutical administration: 1 hour Injection site: Right antecubital COMPARISON: PT PET WB melanoma INITIAL [id number] 10/14/2022 11:09 AM FINDINGS: Tubes, catheters and devices: A left subclavian central venous port catheter terminates in the distal SVC. Brain: Visualized brain has normal physiologic uptake. Pharynx: No abnormal uptake. Larynx: No abnormal uptake. Lungs, pleura and trachea: An ovoid region of elevated new abnormal uptake in the posteroinferior left lower lobe is identified, SUV max 6.7, corresponding to a region of patchy parenchymal density and a new cavitary appearing lesion measuring 1.8 x 0.8 cm on series 3, image 55. In the lateral inferior right middle lobe, new regions of mild pleural thickening and nodularity demonstrate low-level activity for example in a region measuring 0.9 cm in diameter on series 3, image 63, SUV max 4.0. A right middle lobe calcified granuloma is present. Heart: Normal physiologic uptake. Mediastinal space: No abnormal uptake. Liver: New abnormal uptake in the right lobe of the liver on PET series 4, image 65 is noted, SUV max 5.2 without evidence of a well-defined lesion on the comparison CT images. A subcapsular more laterally located right liver lobe 1.3 cm fluid density structures consistent with a benign cyst. A low-density lesion in the left liver lobe is not radiotracer avid measuring 1.5 x 0.9 cm on series 3, image 70 with a density of simple fluid. Gallbladder and bile ducts: No abnormal uptake. Pancreas: No abnormal uptake. Spleen: No abnormal uptake. A calcified granuloma in the spleen is noted. Adrenal glands: No abnormal uptake. Kidneys and ureters: Normal physiologic uptake. Stomach and bowel: Uptake in the wall of the proximal mid stomach is elevated, SUV max 19.2 (previously 13.6). This uptake is in a region of increased masslike wall thickening which extends into the left splenic hilar region for example on series 3, image 66 in a region measuring approximately 6.6 x 5.3 cm in the axial plane on series 3, image 66. The gastric mass appears to be contiguous with previously noted soft tissue density nodules in the region of the splenic hilum on the prior PET-CT. Vasculature: No abnormal uptake. There are diffuse atherosclerotic changes. Lymph nodes: There is elevated uptake in a soft tissue density nodule likely representing a lymph node medial to the stomach measuring 1.8 cm on series 3, image 75 (previously measuring 2.1 x 1.5 cm), SUV max 5.4 (previously 2.6). A previously noted slightly more superiorly located lymph node is also decreased in size along the medial aspect of the stomach measuring 0.8 cm (previously 1.2 cm) and is no longer radiotracer avid, SUV max 1.8 (previously 3.2). Uptake in bilateral hilar lymph nodes remains elevated, SUV max 5.0 for example superiorly on the right on series 4, image 46 within a lymph node measuring approximately 1 cm (similar in size, with previous SUV max 4.0) and in the left hilar region, SUV max 4.7 (previously 3.6) currently identified on series 4, image 45. The size of the left hilar lymph nodes is difficult to determine without intravenous contrast however these lymph nodes appear similar. A calcified non radiotracer avid subcarinal lymph node is present. Bones/joints: No abnormal uptake in the visualized axial and appendicular skeleton. There is moderate thoracic spine kyphosis. [id number]-[id number] diffuse degenerative vertebral body spondylosis is present. A minimally displaced subcortical fracture of the superomedial right femoral head near the fovea, similar compared with at least 10/01/2022 without elevated uptake. No abnormal uptake in this region was noted on the prior PET-CT. Soft tissues: No abnormal uptake in the visualized head, neck, chest, abdomen, pelvis, and extremities. METRICS: Mediastinal blood pool: SUV max 2.7 PET/[facility] SUB[facility] [id number] Follow up IMPRESSION: 1. Interval increase in size of masslike wall thickening of the proximal to mid stomach, currently demonstrating extension into the region of the left splenic hilum contiguous with previously noted soft tissue density nodules in this location consistent with malignancy. This region demonstrates an interval increase in abnormal uptake compatible with increased neoplastic involvement. 2. A dominant lymph node medial to the stomach is decreased in size since the prior PET-CT however it demonstrates increased uptake concerning for increased neoplastic involvement. A slightly more superiorly located lymph node has decreased in size with interval resolution of uptake. These findings suggest an interval mixed response to therapy in this location. 3. New elevated uptake in the right liver lobe is noted concerning for a new metastasis without a well-defined correlating lesion on the CT images. Assessment of the liver parenchyma is limited without intravenous contrast. Low-density lesions in the lateral right liver lobe and in the left liver lobe are not radiotracer avid compatible with benign lesions, likely representing cysts or hemangiomas. 4. New areas of nodularity in the right middle lobe and left lower lobe with elevated uptake concerning for metastases. 5. Interval increase in elevated uptake in the bilateral hilar regions for which malignancy cannot be excluded. 6. A minimally displaced subcortical fracture appears to be present involving the superomedial right femoral head, unchanged compared with at least 10/01/2022 with no abnormal uptake in this region. Consider MRI of the right hip for further assessment. 7. Additional nonurgent findings as detailed above.
== END 2023-03-10 06:00 | disposition home or self-care (01) ==
PROVIDERS: PCP Family Medicine; Visit Provider Internal Medicine Hematology & Oncology
DX: C16.1 Malignant neoplasm of fundus of stomach (principal)
CPT/HCPCS: 78815; A9552

== ENCOUNTER 2023-03-21 08:33 | Oncology outpatient (recurring) (ONCR) | payer MEDICARE, SELFPAY | END 2023-03-29 23:59 | disposition home or self-care (01) | PROVIDERS: PCP Family Medicine; Visit Provider Internal Medicine Hematology & Oncology | DX: C16.1 Malignant neoplasm of fundus of stomach (principal); C78.01 Secondary malignant neoplasm of right lung; C78.7 Secondary malignant neoplasm of liver and intrahepatic bile duct; C77.8 Secondary and unspecified malignant neoplasm of lymph nodes of multiple regions; Z90.89 Acquired absence of other organs; Z68.23 Body mass index [BMI] 23.0-23.9, adult; R63.4 Abnormal weight loss; Z79.899 Other long term (current) drug therapy | CPT/HCPCS: 36591; 99215; J1642 ==

== ENCOUNTER 2023-04-11 10:50 | Outpatient (CLI) | payer MEDICARE, SELFPAY ==
--- NOTE | 2023-04-11 11:15 | US_ITS ---
WS: [id number] Ultrasound chest, limited. HISTORY: LEFT breast and soft tissue pain. Ultrasound is directed to the area of pain near the LEFT shoulder. There is no soft tissue mass ident ified. No increased vascularity. IMPRESSION: No soft tissue abnormality noted adjacent to the LEFT shoulder and anterior thorax as ind icated by the patient.
== END 2023-04-11 10:51 | disposition home or self-care (01) ==
LOC: RAD 10:55
PROVIDERS: PCP Family Medicine; Visit Provider Nurse Practitioner Family
DX: C16.1 Malignant neoplasm of fundus of stomach (principal); N64.4 Mastodynia; Z95.828 Presence of other vascular implants and grafts
CPT/HCPCS: 76604

== ENCOUNTER → 2023-04-26 09:06 | Outpatient (BNVA) | payer MEDICARE, SELFPAY | PROVIDERS: PCP Family Medicine; Visit Provider Nurse Practitioner Family | DX: C16.1 Malignant neoplasm of fundus of stomach (principal); D50.9 Iron deficiency anemia, unspecified | CPT/HCPCS: 99214 ==

== ENCOUNTER 2023-04-27 08:00 | Oncology outpatient (recurring) (ONCR) | payer MEDICARE, SELFPAY ==
[2023-04-05 09:43] VITALS: BMI 23.6
[2023-04-05 10:15] VITALS: BP 146/65; PULSE 82; RESP 17; TEMP 36.4; O2SAT 99
[2023-04-05 10:16] LABS: Basophils % 0.4 %; Eosinophils # 0.1 10^3/uL (0.0-0.8); Eosinophils % 1.1 %; Hematocrit 26.8 % (36-47); Lymphocytes % 12.6 %; Mean Corpuscular Hemoglobin 30.9 pg (27-33); Mean Corpuscular Volume 99.6 fl (85-98); Mean Platelet Volume 9.6 fL (7.4-10.4); Monocytes % 13.1 %; Neutrophils % 72.4 %; Nucleated Red Blood Cells % 0 %; Platelet Count 341 10^3/cmm (157-399); Red Blood Count 2.69 10^6/uL (3.85-5.65); Red Cell Distribution Width 14.6 % (12.1-15.1); White Blood Count 7.87 10^3/uL (3.29-11.43)
[2023-04-05 10:59] LABS: Alanine Aminotransferase 10 U/L (0-33); Albumin Level 3.7 g/dL (3.5-5.2); Alkaline Phosphatase 89 U/L (35-105); Anion Gap 14.6 (5-19); Aspartate Amino Transferase 38 U/L (0-32); Blood Urea Nitrogen 14 mg/dL (8-23); Calcium 8.7 mg/dL (8.5-10.5); Carbon Dioxide 25 mmol/L (22-29); Chloride 105 mmol/L (98-107); Globulin 2.8 g/dL (1.3-4.6); Glucose 87 mg/dL (65-115); Osmolality Calculated 290 mOsm/kg (285-295); Potassium 4.6 mmol/L (3.5-5.1); Sodium 140 mmol/L (136-145); Total Bilirubin 0.2 mg/dL (0.15-1.2); Total Protein 6.5 g/dL (6.6-8.7)
[2023-04-05] MEDS: dextrose 5% 250 ML 75 ML IV (12:06)
[2023-04-05] MEDS: palonosetron 0.25 mg/5 mL SDV IVP (12:22)
[2023-04-05 12:25] LABS: Carcinoembryonic Antigen 0.6 ng/mL (0.0-4.7)
[2023-04-05] MEDS: atropine 1 mg/mL SDV 1 mL 0.4 MG IV (12:46)
[2023-04-05] MEDS: DEXTROSE 5% IV (12:48)
[2023-04-05] MEDS: IRINOTECAN IV (12:48)
[2023-04-05 13:55] VITALS: BP 121/78; PULSE 75; RESP 18; TEMP 36.6; O2SAT 98
[2023-04-12 08:35] VITALS: BP 126/67; PULSE 65; RESP 16; TEMP 36.8; O2SAT 91
[2023-04-12 08:42] LABS: Basophils % 0.5 %; Eosinophils % 0.5 %; Hematocrit 25.3 % (36-47); Lymphocytes # 0.5 10^3/uL (0.8-4.8); Lymphocytes % 6.5 %; Mean Corpuscular HGB Conc 31.2 g/dL (30-55); Mean Corpuscular Hemoglobin 31.2 pg (27-33); Mean Platelet Volume 9.4 fL (7.4-10.4); Monocytes # 0.9 10^3/uL (0.2-0.9); Monocytes % 10.8 %; Neutrophils % 80.7 %; Nucleated Red Blood Cells % 0 %; Platelet Count 365 10^3/cmm (157-399); Red Blood Count 2.53 10^6/uL (3.85-5.65); Red Cell Distribution Width 13.9 % (12.1-15.1); White Blood Count 8.05 10^3/uL (3.29-11.43)
[2023-04-12 09:07] LABS: Alanine Aminotransferase 13 U/L (0-33); Albumin Level 3.6 g/dL (3.5-5.2); Alkaline Phosphatase 94 U/L (35-105); Anion Gap 16.2 (5-19); Aspartate Amino Transferase 24 U/L (0-32); Blood Urea Nitrogen 18 mg/dL (8-23); Calcium 8.4 mg/dL (8.5-10.5); Carbon Dioxide 22 mmol/L (22-29); Chloride 103 mmol/L (98-107); Globulin 2.9 g/dL (1.3-4.6); Glucose 140 mg/dL (65-115); Osmolality Calculated 288 mOsm/kg (285-295); Potassium 4.2 mmol/L (3.5-5.1); Sodium 137 mmol/L (136-145); Total Bilirubin 0.3 mg/dL (0.15-1.2); Total Protein 6.5 g/dL (6.6-8.7)
[2023-04-12] MEDS: dextrose 5% 250 ML 75 ML IV (10:20)
[2023-04-12] MEDS: palonosetron 0.25 mg/5 mL SDV IVP (10:23)
[2023-04-12] MEDS: atropine 1 mg/mL SDV 1 mL 0.4 MG IV (11:18)
[2023-04-12] MEDS: DEXTROSE 5% IV (11:21)
[2023-04-12] MEDS: IRINOTECAN IV (11:21)
[2023-04-12 12:57] VITALS: BP 119/56; PULSE 69; RESP 17; TEMP 36.7; O2SAT 97
[2023-04-26] VITALS (7 sets, daily range): BP systolic 125–152; BP diastolic 58–75; PULSE 70–80; RESP 16–18; TEMP 36.4–37; O2SAT 97–100
[2023-04-26 09:39] LABS: Basophils % 0.6 %; Eosinophils # 0.1 10^3/uL (0.0-0.8); Eosinophils % 1.8 %; Hematocrit 23.4 % (36-47); Lymphocytes # 0.8 10^3/uL (0.8-4.8); Lymphocytes % 15.7 %; Mean Corpuscular HGB Conc 31.6 g/dL (30-55); Mean Corpuscular Hemoglobin 30.7 pg (27-33); Mean Corpuscular Volume 97.1 fl (85-98); Mean Platelet Volume 8.8 fL (7.4-10.4); Monocytes # 0.8 10^3/uL (0.2-0.9); Monocytes % 16.4 %; Neutrophils # 3.31 10^3/uL (1.8-7.7); Neutrophils % 64.7 %; Nucleated Red Blood Cells % 0 %; Platelet Count 424 10^3/cmm (157-399); Red Blood Count 2.41 10^6/uL (3.85-5.65); Red Cell Distribution Width 14.2 % (12.1-15.1); White Blood Count 5.11 10^3/uL (3.29-11.43)
[2023-04-26 09:57] LABS: Alanine Aminotransferase 11 U/L (0-33); Albumin Level 3.4 g/dL (3.5-5.2); Alkaline Phosphatase 92 U/L (35-105); Aspartate Amino Transferase 19 U/L (0-32); Blood Urea Nitrogen 15 mg/dL (8-23); Calcium 8.2 mg/dL (8.5-10.5); Carbon Dioxide 24 mmol/L (22-29); Chloride 105 mmol/L (98-107); Ferritin 93 ng/mL (15-150); Globulin 2.8 g/dL (1.3-4.6); Glucose 88 mg/dL (65-115); Iron 17 ug/dL (37-145); Osmolality Calculated 288 mOsm/kg (285-295); Percent Saturation 8.6 % (20-50); Sodium 139 mmol/L (136-145); Total Bilirubin 0.2 mg/dL (0.15-1.2); Total Iron Binding Capacity 196 mcg/dl; Total Protein 6.2 g/dL (6.6-8.7); Unsaturated Iron Binding 179 ug/dL (112-347)
[2023-04-26 10:29] LABS: Carcinoembryonic Antigen 1.5 ng/mL (0.0-4.7)
[2023-04-26] MEDS: iron sucrose 200 MG in sodium chloride 0.9% (100 ml) 100 ML 220 MG IV (13:33)
[2023-04-26] MEDS: diphenhydrAMINE 25 mg Capsule PO (13:57)
[2023-04-26] MEDS: acetaminophen 325 mg Tablet 650 MG PO (13:57)
[2023-04-26] MEDS: sodium chloride 0.9% 250 mL Bag IV (14:11)
[2023-04-27] MEDS: dextrose 5% 250 ML 75 ML IV (08:54)
[2023-04-27] MEDS: palonosetron 0.25 mg/5 mL SDV IVP (08:57)
[2023-04-27] MEDS: atropine 1 mg/mL SDV 1 mL 0.4 MG IV (09:34)
[2023-04-27 09:41] VITALS: BP 111/71; PULSE 73; RESP 17; TEMP 36.3; O2SAT 96
[2023-04-27] MEDS: IRINOTECAN IV (09:43)
[2023-04-27] MEDS: DEXTROSE 5% IV (09:43)
[2023-04-27 11:30] VITALS: BP 124/72; PULSE 78; RESP 17; TEMP 36.1; O2SAT 96
== END 2023-04-28 23:59 | disposition home or self-care (01) ==
PROVIDERS: Internal Medicine Medical Oncology; Nurse Practitioner Family; PCP Family Medicine; Visit Provider Internal Medicine Hematology & Oncology
DX: C16.1 Malignant neoplasm of fundus of stomach (principal); Z51.11 Encounter for antineoplastic chemotherapy
CPT/HCPCS: 36430; 80053; 82378; 82728; 83540; 83550; 85025; 86850; 86900; 86920; 96365; 96367; 96374; 96375; 96413; 96415; 99215; J0461; J1100; J1642; J1756; J2469; J7050; J7060; J9206; P9040

== ENCOUNTER → 2023-05-22 09:53 | Outpatient (BNVA) | payer MEDICARE, SELFPAY | PROVIDERS: PCP Family Medicine; Visit Provider Surgery | DX: K92.2 Gastrointestinal hemorrhage, unspecified (principal); C16.1 Malignant neoplasm of fundus of stomach | CPT/HCPCS: 99204; 99214 ==

== ENCOUNTER 2023-05-24 08:15 | Oncology outpatient (recurring) (ONCR) | payer MEDICARE, SELFPAY ==
[2023-04-30 08:14] VITALS: BP 120/73; PULSE 78; RESP 17; TEMP 35.9; O2SAT 96
[2023-04-30] MEDS: sodium chloride 0.9% 250 ML 75 ML IV (08:40)
[2023-04-30] MEDS: iron sucrose 200 MG in sodium chloride 0.9% (100 ml) 100 ML 220 MG IV (08:55)
[2023-04-30 09:45] VITALS: BP 138/73; PULSE 75; RESP 17; TEMP 36; O2SAT 97
[2023-05-02] MEDS: iron sucrose 200 MG in sodium chloride 0.9% (100 ml) 100 ML 220 MG IV (08:40)
[2023-05-02 09:20] VITALS: BP 122/74; PULSE 88; RESP 18; TEMP 36.3; O2SAT 96
[2023-05-04] MEDS: sodium chloride 0.9% 250 ML 75 ML IV (08:30)
[2023-05-04 08:33] LABS: Basophils % 0.8 %; Eosinophils # 0.1 10^3/uL (0.0-0.8); Eosinophils % 2.5 %; Hematocrit 27.4 % (36-47); Lymphocytes # 0.7 10^3/uL (0.8-4.8); Lymphocytes % 14.2 %; Mean Corpuscular HGB Conc 31.8 g/dL (30-55); Mean Corpuscular Hemoglobin 30.3 pg (27-33); Mean Corpuscular Volume 95.5 fl (85-98); Monocytes # 0.6 10^3/uL (0.2-0.9); Monocytes % 11.5 %; Neutrophils # 3.59 10^3/uL (1.8-7.7); Neutrophils % 69.8 %; Nucleated Red Blood Cells % 0 %; Platelet Count 431 10^3/cmm (157-399); Red Blood Count 2.87 10^6/uL (3.85-5.65); Red Cell Distribution Width 15.7 % (12.1-15.1); White Blood Count 5.14 10^3/uL (3.29-11.43)
[2023-05-04 08:36] VITALS: BP 148/65; PULSE 60; RESP 17; TEMP 36.1; O2SAT 96
[2023-05-04] MEDS: iron sucrose 200 MG in sodium chloride 0.9% (100 ml) 100 ML 240 MG IV (08:43)
[2023-05-04] MEDS: palonosetron 0.25 mg/5 mL SDV IVP (09:34)
[2023-05-04] MEDS: atropine 1 mg/mL SDV 1 mL 0.4 MG IV (10:15)
[2023-05-04] MEDS: dextrose 5% 250 ML 75 ML IV (10:15)
[2023-05-04] MEDS: IRINOTECAN IV (10:20)
[2023-05-04] MEDS: DEXTROSE 5% IV (10:20)
[2023-05-04 11:40] VITALS: BP 150/71; PULSE 62; RESP 17; TEMP 36.2; O2SAT 98
[2023-05-07 08:10] VITALS: BP 148/66; PULSE 69; RESP 17; TEMP 36.1; O2SAT 96
[2023-05-07] MEDS: sodium chloride 0.9% 250 ML 75 ML IV (08:36)
[2023-05-07] MEDS: iron sucrose 200 MG in sodium chloride 0.9% (100 ml) 100 ML 220 MG IV (08:38)
[2023-05-07 09:30] VITALS: BP 156/65; PULSE 63; RESP 17; TEMP 36.1; O2SAT 97
[2023-05-17 10:10] VITALS: BP 144/80; PULSE 75; RESP 16; TEMP 36.7
[2023-05-17 10:30] LABS: Basophils # 0.1 10^3/uL (0.0-0.1); Basophils % 1.1 %; Eosinophils # 0.2 10^3/uL (0.0-0.8); Eosinophils % 3.6 %; Hematocrit 28.2 % (36-47); Lymphocytes # 0.8 10^3/uL (0.8-4.8); Lymphocytes % 17.1 %; Mean Corpuscular HGB Conc 31.9 g/dL (30-55); Mean Corpuscular Hemoglobin 31.1 pg (27-33); Mean Corpuscular Volume 97.6 fl (85-98); Mean Platelet Volume 9.8 fL (7.4-10.4); Monocytes # 0.7 10^3/uL (0.2-0.9); Monocytes % 15.8 %; Neutrophils # 2.78 10^3/uL (1.8-7.7); Nucleated Red Blood Cells % 0 %; Platelet Count 293 10^3/cmm (157-399); Red Blood Count 2.89 10^6/uL (3.85-5.65); Red Cell Distribution Width 19.3 % (12.1-15.1); White Blood Count 4.49 10^3/uL (3.29-11.43)
[2023-05-17 10:58] LABS: Carcinoembryonic Antigen 1.8 ng/mL (0.0-4.7)
[2023-05-17 11:09] LABS: Alanine Aminotransferase 17 U/L (0-33); Albumin Level 3.7 g/dL (3.5-5.2); Alkaline Phosphatase 120 U/L (35-105); Anion Gap 16.1 (5-19); Aspartate Amino Transferase 34 U/L (0-32); Blood Urea Nitrogen 18 mg/dL (8-23); Calcium 8.8 mg/dL (8.5-10.5); Carbon Dioxide 23 mmol/L (22-29); Chloride 106 mmol/L (98-107); Globulin 2.3 g/dL (1.3-4.6); Glucose 97 mg/dL (65-115); Osmolality Calculated 294 mOsm/kg (285-295); Potassium 4.1 mmol/L (3.5-5.1); Sodium 141 mmol/L (136-145); Total Bilirubin 0.2 mg/dL (0.15-1.2)
[2023-05-17] MEDS: dextrose 5% 250 ML 75 ML IV (12:00)
[2023-05-17] MEDS: palonosetron 0.25 mg/5 mL SDV IVP (12:01)
[2023-05-17] MEDS: atropine 1 mg/mL SDV 1 mL 0.4 MG IV (12:06)
[2023-05-17] MEDS: IRINOTECAN IV (12:28)
[2023-05-17] MEDS: DEXTROSE 5% IV (12:28)
[2023-05-17 13:25] VITALS: BP 123/67; PULSE 73; RESP 16; TEMP 36.2; O2SAT 99
[2023-05-24 08:09] VITALS: BP 133/67; PULSE 73; RESP 17; TEMP 36.8; O2SAT 92
[2023-05-24 08:35] LABS: Basophils % 0.7 %; Eosinophils # 0.2 10^3/uL (0.0-0.8); Eosinophils % 3.3 %; Hematocrit 26.6 % (36-47); Lymphocytes # 0.6 10^3/uL (0.8-4.8); Lymphocytes % 12.7 %; Mean Corpuscular HGB Conc 31.6 g/dL (30-55); Mean Corpuscular Hemoglobin 31.3 pg (27-33); Mean Corpuscular Volume 99.3 fl (85-98); Monocytes # 0.7 10^3/uL (0.2-0.9); Monocytes % 14.4 %; Neutrophils # 3.12 10^3/uL (1.8-7.7); Nucleated Red Blood Cells % 0 %; Platelet Count 318 10^3/cmm (157-399); Red Blood Count 2.68 10^6/uL (3.85-5.65); Red Cell Distribution Width 19.3 % (12.1-15.1); White Blood Count 4.58 10^3/uL (3.29-11.43)
[2023-05-24 08:49] LABS: Alanine Aminotransferase 15 U/L (0-33); Albumin Level 3.5 g/dL (3.5-5.2); Alkaline Phosphatase 114 U/L (35-105); Aspartate Amino Transferase 34 U/L (0-32); Blood Urea Nitrogen 12 mg/dL (8-23); Calcium 8.2 mg/dL (8.5-10.5); Carbon Dioxide 26 mmol/L (22-29); Chloride 103 mmol/L (98-107); Globulin 2.4 g/dL (1.3-4.6); Glucose 94 mg/dL (65-115); Osmolality Calculated 284 mOsm/kg (285-295); Sodium 137 mmol/L (136-145); Total Bilirubin 0.2 mg/dL (0.15-1.2); Total Protein 5.9 g/dL (6.6-8.7)
[2023-05-24 08:50] VITALS: BMI 22.7
[2023-05-24] MEDS: dextrose 5% 250 ML 75 ML IV (10:01)
[2023-05-24] MEDS: palonosetron 0.25 mg/5 mL SDV IVP (10:02)
[2023-05-24] MEDS: atropine 1 mg/mL SDV 1 mL 0.4 MG IV (10:36)
[2023-05-24] MEDS: DEXTROSE 5% IV (10:46)
[2023-05-24] MEDS: IRINOTECAN IV (10:46)
[2023-05-24] MEDS: flu vacc pf 2023-24 (6 mos+) 60 MCG IM (12:07)
[2023-05-24 12:17] VITALS: BP 127/71; PULSE 71; RESP 17; TEMP 35.8; O2SAT 98
== END 2023-05-29 23:59 | disposition home or self-care (01) ==
PROVIDERS: Nurse Practitioner Family; PCP Family Medicine; Visit Provider Internal Medicine Medical Oncology
DX: C16.1 Malignant neoplasm of fundus of stomach (principal); Z51.11 Encounter for antineoplastic chemotherapy; Z45.1 Encounter for adjustment and management of infusion pump; Z79.899 Other long term (current) drug therapy
CPT/HCPCS: 80053; 82378; 85025; 90471; 90686; 96365; 96367; 96374; 96375; 96413; 99213; 99214; J0461; J1100; J1642; J1756; J2469; J7050; J7060; J9206

== ENCOUNTER 2023-06-18 12:26 | Outpatient (CLI) | payer MEDICARE, SELFPAY ==
--- NOTE | 2023-06-18 13:00 | CT_ITS ---
WS: [id number] CT CHEST, ABDOMEN AND PELVIS WITH CONTRAST HISTORY: Follow-up stomach cancer. Pain under RIGHT breast. TECHNIQUE: Contiguous 5 mm axial imaging performed through the chest, abdomen and pelvis with IV cont rast, oral contrast has been provided. Coronal and sagittal reformats chest. Coronal and sagittal ref ormats through the abdomen and pelvis. All CT scans at [facility] use at least one of these d ose optimization techniques: automated exposure control; mA and/or kV adjustment per patient size (in cludes targeted exams where dose is matched to clinical indication); or iterative reconstruction. CONTRAST: Omnipaque 350; 100 mL IV. DLP: 475.71 mGy.cm COMPARISON: 10/01/2022, PET/CT 03/10/[address]: No pulmonary mass or nodule. Benign granuloma LEFT lower lung field. Small LEFT pleural eff usion. Bronchiectasis in the lower lung laura. Heart size is normal. Small mediastinal and hilar lym ph nodes. Mild atherosclerosis aorta. Normal size pulmonary artery. No pericardial effusion. LEFT subclavian Mediport. No chest wall mass. Abdomen CT: Significant change in appearance of the abdomen since the prior study. Numerous metastati c lesions are present within the liver. Predominately low-attenuation masses with the largest centere d in the RIGHT lobe of the liver measuring 4.8 x 4.4 cm. There are additional benign hepatic cysts. M etastatic masses involve the lateral and medial lobes of the liver. Portal vein remains patent. No bi le duct dilatation. Gallbladder is contracted. Normal pancreas. No adrenal mass. There is a large solid mass with variable enhancement centered in the LEFT upper abdomen. This mass i s displacing the stomach, spleen and abuts the LEFT adrenal gland. Mass measures 10.0 x 10.8 x 11.4 c m. The stomach is being compressed and displaced centrally. This mass also extends to the LEFT diaphr agmatic surface and may extend through the diaphragmatic surface and abuts the LEFT heart. Mass also probably extends into the abdominal wall and lower thoracic wall to the intercostal muscles. There ar e additional numerous lymph nodes scattered throughout the mesentery and retroperitoneum. All of thes e findings have significantly progressed since 10/01/2022 and also the PET/CT of 03/10/2023. Cortical cysts within each kidney. No renal obstruction. Atherosclerosis aorta. No small bowel or col on obstruction. Pelvic CT: Nondistended urinary bladder. No free fluid in the pelvis. No osteoblastic or osteolytic bone disease is appreciated by CT. IMPRESSION: 1. Significant progression of the soft tissue neoplastic mass centered in the LEFT upper abdomen whic h has been previously described within the stomach. This mass now measures 10.0 x 10.8 x 11.4 cm and is causing significant displacement of the stomach, spleen and adrenal gland. Mass probably extends t hrough the LEFT diaphragm and nearly abuts the LEFT heart and may also extend into the intercostal mu scles of the LEFT chest wall. 2. Progression of lymph nodes in the upper abdomen surrounding the celiac axis/mesentery and retroper itoneal lymph nodes at the level of the renal vein. 3. Numerous metastatic lesions are now noted within the liver. The largest in the RIGHT lobe measures 4.8 x 4.4 cm. 4. No definite metastatic lesions within the lungs and no mediastinal or hilar adenopathy. 4. Very small LEFT pleural effusion.
[2023-06-18] MEDS: iohexol 350 mg/mL 500 mL Btl (per mL) PO (13:53)
[2023-06-18] MEDS: iohexol 350 mg/mL 500 mL Btl (per mL) IV (13:53)
== END 2023-06-18 12:27 | disposition home or self-care (01) ==
LOC: RAD 12:26
PROVIDERS: PCP Family Medicine; Visit Provider Internal Medicine Medical Oncology
DX: C16.1 Malignant neoplasm of fundus of stomach (principal); R07.89 Other chest pain; C78.7 Secondary malignant neoplasm of liver and intrahepatic bile duct; J90 Pleural effusion, not elsewhere classified
CPT/HCPCS: 71260; 74177; Q9967

== ENCOUNTER 2023-06-27 08:39 | Day surgery (SDC) | payer MEDICARE, SELFPAY ==
[2023-06-27] VITALS (10 sets, daily range): BP systolic 100–139; BP diastolic 53–79; PULSE 79–101; RESP 16–20; TEMP 36.7–37.4; O2SAT 88–97
--- NOTE | 2023-06-27 09:20 | P.ANESASSM_ITS ---
Pre-Anesthetic Assessment Height/Weight: Height 1.57 m Weight 56.245 kg Temp Pulse Resp BP Pulse Ox O2 Del Method 98.0 F 101 H 18 139/72 97 Room Air 06/27/23 09:14 06/27/23 09:14 06/27/23 09:14 06/27/23 09:14 06/27/23 09:14 06/27/23 09:14 Operation Date: 06/27/23 09:45 Proposed Procedures p EGD [id number],D50.9,K92.2,C16.1(Not Applicable) - uBck Pino DO Familial anesthetic complications: none Last intake: Intake Last Liquid Date 06/27/23 Last Liquid Time 18:00 Last Solid Date 06/26/23 Last Solid Time 16:00 Social No alcohol and No tobacco Exam alert, oriented x 3, clear to auscultation bilaterally and regular rate & rhythm [place] Airway Submandibular: within normal limits Cervical ROM: within normal limits Mallampati: Class II Comments: Comments: edentulous History/ROS No significant history except as noted Pulmonary None reported CV/HEM None reported None reported Hepatic None reported GI Gastroesophageal Reflux Disease Metabolic None reported Musc/skel None reported Neuropsych Cerebrovascular Accident (right sided weakness and speech delay) and Transient Ischemic Attack Anesthetic Plan ASA status: 3 Anesthesia: Anesthesia Evaluation and MAC Medications/Allergies Home Medications Medication Instructions Recorded Confirmed Last Taken Type calcium carbonate 600 mg calcium 600 mg PO DAILY 10/02/22 06/27/23 06/26/23 History (1,500 mg) tablet (Calcium) cholecalciferol (vitamin D3) 25 25 mcg PO DAILY 10/02/22 06/27/23 06/26/23 History mcg (1,000 unit) capsule (Vitamin D3) latanoprost 0.005 % eye drops 1 drp ophthalmic (eye) BEDTIME 10/02/22 06/27/23 06/26/23 History lovastatin 40 mg tablet 40 mg PO QPM 10/02/22 06/27/23 06/26/23 History kzeilqth-lri-otbgm ac 400 1 tab PO DAILY 10/02/22 06/27/23 06/26/23 History mcg-calcium carb 500 mg-vit K1 20 mcg tablet (Women's 50 Plus Daily Formula) vitamin B12 2,500 mcg-folic acid 1 tab PO DAILY 10/02/22 06/27/23 06/26/23 History 400 mcg disintegrating tablet ferrous sulfate 325 mg (65 mg 325 mg PO DAILY 11/21/22 06/27/23 06/26/23 History iron) tablet diphenoxylate-atropine 2.5 2 tab PO QID PRN Diarrhea #60 tabs 03/29/23 06/27/23 06/26/23 Rx mg-0.025 mg tablet (Lomotil) lidocaine-prilocaine 2.5 %-2.5 % 1 applic topical .COMPLEX #30 grams 04/05/23 06/27/23 06/26/23 Rx topical cream ondansetron HCl 4 mg tablet 4 mg PO QID PRN Nausea/vomiting 04/05/23 06/27/23 06/26/23 Rx #30 tabs prochlorperazine maleate 10 mg 10 mg PO Q4H PRN Mild Nausea #30 04/05/23 06/27/23 06/26/23 Rx tablet (Compazine) tabs timolol maleate 0.5 % eye drops 1 drp ophthalmic (eye) BID 04/26/23 06/27/23 06/26/23 History Allergies Allergy/AdvReac Type Severity Reaction Status Date / Time No Known Allergies Allergy Verified 06/25/23 09:57 PFSH Anesthesia Medical History Stroke Hypercholesteremia Gastric adenocarcinoma Carcinoma of fundus of stomach Anemia Upper gastrointestinal hemorrhage Gastritis Surgical History History of ankle surgery Left ankle History of appendectomy Family History Brother Cancer Lung - smokers Father Cancer colon cancer Sister Cancer liver Daughter Hypertension Other CAD (coronary artery disease) Dementia Denies family history of Diabetes Clotting disorder Hyperlipidemia Psychiatric illness Chronic kidney disease (CKD) Suicide Anesthesia complication Bleeding disorder Lung disease Stroke Social History Smoking and tobacco/nicotine status: never used tobacco/nicotine Alcohol intake: never Data Anesthesia Cardiac Studies: No Data to Display
--- NOTE | 2023-06-27 09:26 | PM.HP ---
Providers/Chief Complaint Primary Care Provider: Edd Coats DO Chief Complaint: D50.9, K92.2, C16.1 History of Present Illness Griselda Dillard is a 82 year old female Review of Systems General: Reports: 10 or more systems reviewed and unremarkable except in HPI and below Medications/Allergies Home Medications Medication Instructions Recorded Confirmed Last Taken Type calcium carbonate 600 mg calcium 600 mg PO DAILY 10/02/22 06/27/23 06/26/23 History (1,500 mg) tablet (Calcium) cholecalciferol (vitamin D3) 25 25 mcg PO DAILY 10/02/22 06/27/23 06/26/23 History mcg (1,000 unit) capsule (Vitamin D3) latanoprost 0.005 % eye drops 1 drp ophthalmic (eye) BEDTIME 10/02/22 06/27/23 06/26/23 History lovastatin 40 mg tablet 40 mg PO QPM 10/02/22 06/27/23 06/26/23 History bzfxzpnk-npu-ectmb ac 400 1 tab PO DAILY 10/02/22 06/27/23 06/26/23 History mcg-calcium carb 500 mg-vit K1 20 mcg tablet (Women's 50 Plus Daily Formula) vitamin B12 2,500 mcg-folic acid 1 tab PO DAILY 10/02/22 06/27/23 06/26/23 History 400 mcg disintegrating tablet ferrous sulfate 325 mg (65 mg 325 mg PO DAILY 11/21/22 06/27/23 06/26/23 History iron) tablet diphenoxylate-atropine 2.5 2 tab PO QID PRN Diarrhea #60 tabs 03/29/23 06/27/23 06/26/23 Rx mg-0.025 mg tablet (Lomotil) lidocaine-prilocaine 2.5 %-2.5 % 1 applic topical .COMPLEX #30 grams 04/05/23 06/27/23 06/26/23 Rx topical cream ondansetron HCl 4 mg tablet 4 mg PO QID PRN Nausea/vomiting 04/05/23 06/27/23 06/26/23 Rx #30 tabs prochlorperazine maleate 10 mg 10 mg PO Q4H PRN Mild Nausea #30 04/05/23 06/27/23 06/26/23 Rx tablet (Compazine) tabs timolol maleate 0.5 % eye drops 1 drp ophthalmic (eye) BID 04/26/23 06/27/23 06/26/23 History Allergies Allergy/AdvReac Type Severity Reaction Status Date / Time No Known Allergies Allergy Verified 06/25/23 09:57 PFSH Acute PFSH: Medical History Stroke Hypercholesteremia Gastric adenocarcinoma Carcinoma of fundus of stomach Anemia Upper gastrointestinal hemorrhage Gastritis Surgical History History of ankle surgery Left ankle History of appendectomy Family History Brother Cancer Lung - smokers Father Cancer colon cancer Sister Cancer liver Daughter Hypertension Other CAD (coronary artery disease) Dementia Denies family history of Diabetes Clotting disorder Hyperlipidemia Psychiatric illness Chronic kidney disease (CKD) Suicide Anesthesia complication Bleeding disorder Lung disease Stroke Social History Smoking and tobacco/nicotine status: never used tobacco/nicotine Alcohol intake: never Vitals/I&O/Wt Last Vital Signs Temp 98.0 F 06/27/23 09:14 Pulse 101 H 06/27/23 09:14 Resp 18 06/27/23 09:14 BP 139/72 06/27/23 09:14 Pulse Ox 97 06/27/23 09:14 O2 Del Method Room Air 06/27/23 09:14 Weight last 48 hrs Weight 124 lb A&P Assessment and plan (1) Carcinoma of fundus of stomach: Plan EGD Attestations Medical Necessity Statement*: home Coding Level of Care Code Acute Code for Chg Fwd Diagnoses Carcinoma of fundus of stomach C16.1
[2023-06-27] MEDS: sodium chloride 0.9% 1,000 ML 30 ML IV (09:31)
[2023-06-27] MEDS: tranexamic acid 1,000 MG/100 ML PREMIX 600 MG IV ×2 (09:59→11:02)
--- NOTE | 2023-06-27 11:07 | PC.NURSE ---
Anesthesia at bedside. Removed 02 nasal cannula. Sp02 reading 97% on room air on finger probe. Education provided by anesthesia.
--- NOTE | 2023-06-27 14:08 | ANE.PACU2 ---
Inpatient post-anesthesia follow up: Airway intact: Yes Vital signs: Temperature 99.3 F Pulse Rate 88 Respiratory Rate 20 Blood Pressure 139/70 Pulse Oximetry 96 Oxygen Delivery Me thod Room Air Oxygen Flow Rate 2 Fraction of Inspir ed Oxygen Hydration adequate: Yes Nausea and vomiting: No Pain level: 1 Mental status: Baseline
== END 2023-06-27 11:40 | disposition home or self-care (01) ==
PROVIDERS: PCP Family Medicine; Visit Provider Surgery
PROC: 0DJ08ZZ Inspection of Upper Intestinal Tract, Via Natural or Artificial Opening Endoscopic (ICD-10-PCS; CPT 43235; principal; 2023-06-27 09:45)
DX: C16.1 Malignant neoplasm of fundus of stomach (principal); Z86.73 Personal history of transient ischemic attack (TIA), and cerebral infarction without residual deficits; K21.9 Gastro-esophageal reflux disease without esophagitis
CPT/HCPCS: 43239; 88305; 88342; 96365; J2704; J7030

== ENCOUNTER 2023-06-28 09:00 | Oncology outpatient (recurring) (ONCR) | payer MEDICARE, SELFPAY ==
[2023-06-07 08:53] VITALS: BMI 26.2
[2023-06-07 08:54] VITALS: BP 143/73; PULSE 82; RESP 17; TEMP 36.5
[2023-06-07 09:11] LABS: Basophils % 0.7 %; Eosinophils # 0.1 10^3/uL (0.0-0.8); Eosinophils % 1.9 %; Lymphocytes # 0.7 10^3/uL (0.8-4.8); Lymphocytes % 12.3 %; Mean Corpuscular HGB Conc 31.1 g/dL (30-55); Mean Corpuscular Hemoglobin 31.2 pg (27-33); Mean Corpuscular Volume 100.4 fl (85-98); Mean Platelet Volume 9.6 fL (7.4-10.4); Monocytes # 0.7 10^3/uL (0.2-0.9); Monocytes % 12.9 %; Neutrophils # 4.07 10^3/uL (1.8-7.7); Neutrophils % 71.7 %; Nucleated Red Blood Cells % 0 %; Platelet Count 331 10^3/cmm (157-399); Red Blood Count 2.69 10^6/uL (3.85-5.65); White Blood Count 5.68 10^3/uL (3.29-11.43)
[2023-06-07 09:38] LABS: Carcinoembryonic Antigen 2.4 ng/mL (0.0-4.7)
[2023-06-07 09:49] LABS: Alanine Aminotransferase 15 U/L (0-33); Albumin Level 3.3 g/dL (3.5-5.2); Alkaline Phosphatase 113 U/L (35-105); Anion Gap 14.1 (5-19); Aspartate Amino Transferase 38 U/L (0-32); Blood Urea Nitrogen 14 mg/dL (8-23); Calcium 8.5 mg/dL (8.5-10.5); Carbon Dioxide 24 mmol/L (22-29); Chloride 104 mmol/L (98-107); Globulin 2.4 g/dL (1.3-4.6); Glucose 100 mg/dL (65-115); Osmolality Calculated 287 mOsm/kg (285-295); Potassium 4.1 mmol/L (3.5-5.1); Sodium 138 mmol/L (136-145); Total Bilirubin 0.2 mg/dL (0.15-1.2); Total Protein 5.7 g/dL (6.6-8.7)
[2023-06-07] MEDS: dextrose 5% 250 ML 75 ML IV (11:01)
[2023-06-07] MEDS: palonosetron 0.25 mg/5 mL SDV IVP (11:04)
[2023-06-07] MEDS: atropine 1 mg/mL SDV 1 mL 0.4 MG IV (11:34)
[2023-06-07] MEDS: DEXTROSE 5% IV (11:42)
[2023-06-07] MEDS: IRINOTECAN IV (11:42)
[2023-06-07 13:15] VITALS: BP 122/74; PULSE 78; RESP 17; TEMP 36.5; O2SAT 96
[2023-06-14] VITALS (8 sets, daily range): BP systolic 95–121; BP diastolic 59–74; PULSE 76–94; RESP 16–18; TEMP 35.6–36.3; O2SAT 98
[2023-06-14 10:45] LABS: Basophils % 0.4 %; Eosinophils # 0.1 10^3/uL (0.0-0.8); Hematocrit 24.9 % (36-47); Lymphocytes # 0.5 10^3/uL (0.8-4.8); Lymphocytes % 7.2 %; Mean Corpuscular HGB Conc 30.9 g/dL (30-55); Mean Corpuscular Hemoglobin 31.3 pg (27-33); Mean Corpuscular Volume 101.2 fl (85-98); Mean Platelet Volume 9.6 fL (7.4-10.4); Monocytes % 13.5 %; Neutrophils # 5.46 10^3/uL (1.8-7.7); Neutrophils % 76.6 %; Nucleated Red Blood Cells % 0 %; Platelet Count 374 10^3/cmm (157-399); Red Blood Count 2.46 10^6/uL (3.85-5.65); Red Cell Distribution Width 19.7 % (12.1-15.1); White Blood Count 7.12 10^3/uL (3.29-11.43)
[2023-06-14 11:14] LABS: Alanine Aminotransferase 15 U/L (0-33); Albumin Level 3.1 g/dL (3.5-5.2); Alkaline Phosphatase 119 U/L (35-105); Anion Gap 15.2 (5-19); Aspartate Amino Transferase 33 U/L (0-32); Blood Urea Nitrogen 14 mg/dL (8-23); Calcium 8.5 mg/dL (8.5-10.5); Carbon Dioxide 25 mmol/L (22-29); Chloride 99 mmol/L (98-107); Globulin 2.6 g/dL (1.3-4.6); Glucose 96 mg/dL (65-115); Osmolality Calculated 280 mOsm/kg (285-295); Potassium 4.2 mmol/L (3.5-5.1); Sodium 135 mmol/L (136-145); Total Bilirubin 0.2 mg/dL (0.15-1.2); Total Protein 5.7 g/dL (6.6-8.7)
[2023-06-14 12:17] LABS: Ferritin 748 ng/mL (15-150); Iron 24 ug/dL (37-145); Percent Saturation 12.9 % (20-50); Total Iron Binding Capacity 185 mcg/dl; Unsaturated Iron Binding 161 ug/dL (112-347)
[2023-06-14] MEDS: sodium chloride 0.9% 100 mL Bag 50 ML IV (13:45)
[2023-06-14] MEDS: diphenhydrAMINE 25 mg Capsule PO (13:46)
[2023-06-14] MEDS: acetaminophen 325 mg Tablet 650 MG PO (13:46)
[2023-06-14] MEDS: iron sucrose 200 MG in sodium chloride 0.9% (100 ml) 100 ML 220 MG IV (16:18)
[2023-06-25 11:10] LABS: Basophils % 0.1 %; Lymphocytes # 0.8 10^3/uL (0.8-4.8); Lymphocytes % 6.2 %; Mean Corpuscular HGB Conc 31.5 g/dL (30-55); Mean Corpuscular Hemoglobin 30.7 pg (27-33); Mean Corpuscular Volume 97.4 fl (85-98); Mean Platelet Volume 9.8 fL (7.4-10.4); Monocytes # 1.7 10^3/uL (0.2-0.9); Monocytes % 12.5 %; Neutrophils # 10.78 10^3/uL (1.8-7.7); Nucleated Red Blood Cells % 0 %; Platelet Count 378 10^3/cmm (157-399); Red Blood Count 2.67 10^6/uL (3.85-5.65); Red Cell Distribution Width 18.7 % (12.1-15.1); White Blood Count 13.49 10^3/uL (3.29-11.43)
[2023-06-25 11:31] LABS: Alanine Aminotransferase 48 U/L (0-33); Albumin Level 2.6 g/dL (3.5-5.2); Alkaline Phosphatase 165 U/L (35-105); Anion Gap 14.8 (5-19); Aspartate Amino Transferase 109 U/L (0-32); Blood Urea Nitrogen 21 mg/dL (8-23); Carbon Dioxide 24 mmol/L (22-29); Chloride 98 mmol/L (98-107); Globulin 2.6 g/dL (1.3-4.6); Glucose 98 mg/dL (65-115); Osmolality Calculated 279 mOsm/kg (285-295); Potassium 3.8 mmol/L (3.5-5.1); Sodium 133 mmol/L (136-145); Total Bilirubin 0.3 mg/dL (0.15-1.2); Total Protein 5.2 g/dL (6.6-8.7)
[2023-06-25 11:55] LABS: NT Pro B Type Natriuretic Pept 1053 pg/mL (0-450)
[2023-06-25] MEDS: sodium chloride 0.9% 500 ML 999 ML IV (13:19)
[2023-06-25] MEDS: iron sucrose 200 MG in sodium chloride 0.9% (100 ml) 100 ML 220 MG IV (13:53)
[2023-06-25 14:10] LABS: Urine Protein Random 69 mg/dL
[2023-06-25 14:48] VITALS: BP 119/57; PULSE 78; O2SAT 95
[2023-06-28 10:11] LABS: Basophils % 0.2 %; Hematocrit 24.7 % (36-47); Lymphocytes # 0.4 10^3/uL (0.8-4.8); Lymphocytes % 2.5 %; Mean Corpuscular HGB Conc 31.2 g/dL (30-55); Mean Corpuscular Hemoglobin 30.7 pg (27-33); Mean Corpuscular Volume 98.4 fl (85-98); Mean Platelet Volume 9.2 fL (7.4-10.4); Monocytes # 1.4 10^3/uL (0.2-0.9); Monocytes % 8.6 %; Neutrophils % 87.3 %; Nucleated Red Blood Cells % 0 %; Platelet Count 419 10^3/cmm (157-399); Red Blood Count 2.51 10^6/uL (3.85-5.65); Red Cell Distribution Width 18.6 % (12.1-15.1); White Blood Count 16.51 10^3/uL (3.29-11.43)
[2023-06-28 10:31] LABS: Alanine Aminotransferase 27 U/L (0-33); Albumin Level 2.3 g/dL (3.5-5.2); Alkaline Phosphatase 158 U/L (35-105); Anion Gap 13.1 (5-19); Aspartate Amino Transferase 52 U/L (0-32); Blood Urea Nitrogen 16 mg/dL (8-23); Calcium 7.6 mg/dL (8.5-10.5); Carbon Dioxide 23 mmol/L (22-29); Chloride 99 mmol/L (98-107); Globulin 2.7 g/dL (1.3-4.6); Glucose 115 mg/dL (65-115); Osmolality Calculated 276 mOsm/kg (285-295); Potassium 3.1 mmol/L (3.5-5.1); Sodium 132 mmol/L (136-145); Total Bilirubin 0.3 mg/dL (0.15-1.2)
[2023-06-28 11:15] LABS: Iron 14 ug/dL (37-145); Percent Saturation 12.3 % (20-50); Total Iron Binding Capacity 113 mcg/dl; Unsaturated Iron Binding 99 ug/dL (112-347)
[2023-06-28] MEDS: sodium chloride 0.9% (100 ml) 100 ML 50 ML (11:51)
[2023-06-28] MEDS: potassium chloride premix 100 ML 50 MEQ IV (11:52)
[2023-06-28 14:00] VITALS: BP 121/73; PULSE 72; TEMP 36.7; O2SAT 98
[2023-06-28 14:10] VITALS: BP 112/78; PULSE 78; RESP 18; TEMP 36.6; O2SAT 98
--- NOTE | 2023-06-28 15:47 | PC.NURSE ---
MD notified of change in condition with severe 3 to 4+ edema to bilateral legs with severe weakness. To MD visit after labs drawn. See orders.
== END 2023-06-28 23:59 | disposition home or self-care (01) ==
PROVIDERS: Internal Medicine Medical Oncology; Nurse Practitioner Family; PCP Family Medicine; Visit Provider Radiology Radiation Oncology
DX: C16.1 Malignant neoplasm of fundus of stomach (principal); Z51.11 Encounter for antineoplastic chemotherapy; Z45.1 Encounter for adjustment and management of infusion pump; D50.9 Iron deficiency anemia, unspecified
CPT/HCPCS: 80053; 82378; 82728; 83540; 83550; 83880; 84156; 85025; 86850; 86900; 86920; 96365; 96366; 96367; 96375; 96413; 99214; 99215; J0461; J1100; J1642; J1756; J2469; J3480; J7040; J7060; J9206; P9016

== ENCOUNTER 2023-07-04 08:00 | Oncology outpatient (recurring) (ONCR) | payer MEDICARE, SELFPAY ==
[2023-06-29] VITALS (12 sets, daily range): BP systolic 102–130; BP diastolic 61–80; PULSE 75–91; RESP 16–18; TEMP 35.7–36.6; O2SAT 90–97
[2023-06-29] MEDS: diphenhydrAMINE 25 mg Capsule PO (07:54)
[2023-06-29] MEDS: acetaminophen 325 mg Tablet 650 MG PO (07:54)
[2023-06-29] MEDS: sodium chloride 0.9% 250 ML IV (07:55)
[2023-07-02] MEDS: sodium chloride 0.9% 1,000 ML 999 ML IV (08:54)
[2023-07-02] MEDS: ondansetron 2 mg/ML SDV 2 mL 8 MG IVP (08:54)
== END 2023-07-07 23:59 | disposition home or self-care (01) ==
PROVIDERS: PCP Family Medicine; Visit Provider Radiology Radiation Oncology
DX: Z53.9 Procedure and treatment not carried out, unspecified reason
CPT/HCPCS: 36430; 86850; 86900; 86920; 96365; 96375; J1100; J1642; J2405; J7030; J7050; P9016; P9040